=== PATIENT | male | born 1945 | race Caucasian/White ===

== ENCOUNTER → 2021-04-21 | Outpatient (CLI) | payer MEDICARE, OTHER ==
--- NOTE | 2021-04-21 16:42 | RAD ---
XR SHOULDER_LEFT 2+ VIEWS Clinical Indication: Reason: FALL. PAIN AND SWELLING. / Spl. Instructions: / History: Comparison: None. Findings: There is acute traumatic essentially nondisplaced fracture of the greater tuberosity of the humerus. There is no shoulder dislocation. There is mild AC arthropathy. There are median sternotomy wires. Th e left lung is clear. IMPRESSION: There is acute traumatic essentially nondisplaced fracture of the greater tuberosity. Electronically signed by: Adrian Garcia MD (04/21/2021 4:40 PM) [id number]
== END ==
LOC: RAD 14:23 → EDSTATUS 05-06 15:06
PROVIDERS: ATTEND Family Medicine
DX: S42.255A Nondisplaced fracture of greater tuberosity of left humerus, initial encounter for closed fracture (principal); M12.812 Other specific arthropathies, not elsewhere classified, left shoulder; W19.XXXA Unspecified fall, initial encounter; Y93.89 Activity, other specified; Y92.89 Other specified places as the place of occurrence of the external cause; Y99.8 Other external cause status
CPT/HCPCS: 73030

== ENCOUNTER → 2021-05-19 | Outpatient (CLI) | payer BC, OTHER ==
[~2021-05-19] MED LIST: ASPI-630 PO; BUME1TAB3 PO; CARB-183 PO; FERR325T72 PO; IPRA3AMP29 NEB; ONDA4TAB12 PO; PHEN100C PO; PRIM250T28 PO; RIVA20TA2 PO; SERT100T PO; TIOT18CA IH; TRAM50TA PO
[2021-05-19 06:27] LABS: BASO % 0 % (0-3); EOS % 0 % (0-3); HEMATOCRIT 38.1 % (39.0-53.0); HEMOGLOBIN 12.1 g/dL (13.0-17.5); LYMPH # 0.6 x10^3/uL (1.0-4.8); LYMPH % 9 % (24-48); MEAN CORPUSCULAR HEMOGLOBIN 31 pg (25-35); MEAN CORPUSCULAR HGB CONC 32 g/dL (31-37); MEAN CORPUSCULAR VOLUME 98 fL (79-100); MONO # 0.5 x10^3/uL (0.0-1.1); MONO % 8 % (0-9); NEUT # 5.5 x10^3/uL (1.8-7.7); NEUT % 83 % (31-73); PLATELET COUNT 187 x10^3/uL (140-400); RED BLOOD COUNT 3.88 x10^6/uL (4.30-5.70); RED CELL DISTRIBUTION WIDTH 17.9 % (11.5-14.5); WHITE BLOOD COUNT 6.6 x10^3/uL (4.0-11.0)
[2021-05-19 06:38] LABS: ALBUMIN 2.9 g/dL (3.4-5.0); ALBUMIN/GLOBULIN RATIO 0.6 (1.0-1.7); CALCIUM 9.3 mg/dL (8.5-10.1); CREATININE 1.4 mg/dL (0.7-1.3); GFR 49.4; POTASSIUM 3.8 mmol/L (3.5-5.1); TOTAL PROTEIN 8.1 g/dL (6.4-8.2)
[2021-05-19 08:50] LABS: % BANDS 4 % (0-9); % LYMPHS 5 % (24-48); % MONOS 2 % (0-10); % SEGS 89 % (35-66); PLT ESTIMATE ADEQUATE (ADEQUATE)
== END ==
LOC: SPEC 00:05
PROVIDERS: ATTEND Family Medicine
DX: J06.9 Acute upper respiratory infection, unspecified (principal)
CPT/HCPCS: 36415; 80053; 85007; 85025

== ENCOUNTER 2021-05-20 21:12 | Inpatient (IN) | payer MEDICARE, OTHER ==
[~2021-05-20] VITALS: Ht 170.2 cm; Wt 95.5 kg
[2021-05-20 21:43] LABS: BASO % 0 % (0-3); EOS % 1 % (0-3); HEMATOCRIT 37.3 % (39.0-53.0); HEMOGLOBIN 12.2 g/dL (13.0-17.5); LYMPH # 0.6 x10^3/uL (1.0-4.8); LYMPH % 7 % (24-48); MEAN CORPUSCULAR HEMOGLOBIN 32 pg (25-35); MEAN CORPUSCULAR HGB CONC 33 g/dL (31-37); MEAN CORPUSCULAR VOLUME 97 fL (79-100); MONO # 0.9 x10^3/uL (0.0-1.1); MONO % 12 % (0-9); NEUT # 6.1 x10^3/uL (1.8-7.7); NEUT % 80 % (31-73); PLATELET COUNT 216 x10^3/uL (140-400); RED BLOOD COUNT 3.84 x10^6/uL (4.30-5.70); RED CELL DISTRIBUTION WIDTH 17.6 % (11.5-14.5); WHITE BLOOD COUNT 7.6 x10^3/uL (4.0-11.0)
[2021-05-20 21:53] LABS: CALCIUM 8.9 mg/dL (8.5-10.1); CREATININE 1.7 mg/dL (0.7-1.3); GFR 39.5; POTASSIUM 3.6 mmol/L (3.5-5.1)
[2021-05-20 21:56] LABS: PROTHROMBIN TIME PATIENT 15.7 SEC (11.7-14.0)
--- NOTE | 2021-05-20 21:57 | RAD ---
Exam: Chest one view INDICATION: Acute respiratory failure TECHNIQUE: Frontal view of the chest Comparisons: 05/18/2021 FINDINGS: Sternotomy wires are noted. The cardiomediastinal silhouette and pulmonary vessels are within normal limits. The lung and pleural spaces are clear. IMPRESSION: No acute pulmonary process. Electronically signed by: Lucia Smith MD (05/20/2021 9:54 PM) SVETA
[2021-05-20 21:59] LABS: ALBUMIN/GLOBULIN RATIO 0.6 (1.0-1.7); TOTAL BILIRUBIN 0.8 mg/dL (0.2-1.0); TOTAL PROTEIN 7.7 g/dL (6.4-8.2)
[2021-05-20 22:53] LABS: INFLUENZA A PATIENT NEGATIVE (NEGATIVE); INFLUENZA B PATIENT NEGATIVE (NEGATIVE)
--- NOTE | 2021-05-20 23:05 | HP ---
DATE OF SERVICE: 05/20/2021 ADMIT DATE: 05/20/2021 CHIEF COMPLAINT: Weakness and shortness of breath. HISTORY OF PRESENT ILLNESS: The patient is a pleasant 75-year-old male who resides at [facility]. He presented to ER tonight with some weakness and shortness of breath. He seems to be having some mental status change. He has some coarse breath sounds. His BUN and creatinine are high at 32 and 1.7. He also has some mild transaminitis with an AST of 72 and alkaline phosphatase of 137. BNP level is also high at 855. Chest x-ray was surprisingly not show any acute disease. I discussed the case with the ER physician. We are going to admit the patient with a presumed diagnosis of possible developing pneumonia. PAST MEDICAL HISTORY: Parkinson's, previous pneumonia, debility, probable bypass surgery (he has an incision on his chest). ALLERGIES: None. FAMILY HISTORY: Diabetes. SOCIAL HISTORY: Does not drink, smoke or take drugs that we know of. MEDICATIONS: Reviewed, please refer to the MRAD. REVIEW OF SYSTEMS: Unable to obtain. The patient is too weak and not talking. PHYSICAL EXAMINATION: VITALS: Within normal limits and are stable. GENERAL: He is very weak and not talking. HEENT: Normal cephalic atraumatic, external auditory canals are patent EYES: Extraocular muscles are intact, pupils are equally round and reactive to light and accommodation MUSCULOSKELETAL: Well developed, well nourished, good range of motion ENDOCRINE: No thyromegaly was palpated LYMPHATICS: No cervical chain or axillary nodes were noted HEMATOPOIETIC: No bruising NECK: Supple, no JVD, no thyromegaly was noted. LUNGS: Clear to auscultation in all lung campo without rhonchi or wheezing. HEART: RRR, S1, S2 present. Peripheral pulses intact, no obvious murmurs were noted. ABDOMEN: Soft, nontender. Positive bowel sounds no organomegaly, normal bowel sounds. EXTREMITIES: Without any cyanosis, clubbing, or edema. Pedal pulses intact, Homans sign is negative. NEUROLOGIC: He is very weak and not talking. PSYCHIATRIC: Normal affect, normal mood. Stable. SKIN: No ulcerations or rashes, good skin turgor, no jaundice. VASCULAR: Good capillary refill, neurovascular bundle appears to be intact. LABORATORY DATA: He is getting a chest x-ray currently. I reviewed the films with supply technician. Electrolytes: Sodium 144, potassium 3.6, chloride 104, bicarb 27, BUN 32, creatinine 1.7, glucose 128. White count 7.6, hemoglobin 12.2, platelets 216. INR is 1.3. ASSESSMENT AND PLAN: Shortness of breath with possible clinical pneumonia, anemia, azotemia, chronic renal insufficiency, mild transaminitis, possible heart failure with an elevated BNP. The patient has been admitted. We will start empiric IV azithromycin. O2 per nasal cannula. Home meds. Deep venous thrombosis prophylaxis. Rule out influenza, rule out COVID-19. We will make further diagnostic and therapeutic recommendations once we receive the patient in the morning. CHELSIE/SHANNON DR: Kaylynn TID: [id number]
[2021-05-20 23:07] LABS: AMORPHOUS SEDIMENT,UR PRESENT /HPF; BACTERIA,URINE MODERATE /HPF (0-FEW); GRANULAR CASTS,URINE OCCASIONAL /HPF; HYALINE CASTS, URINE FEW /HPF; RBC,URINE OCC /HPF (0-2)
[2021-05-21] VITALS (7 sets, daily range): BP systolic 112–146; BP diastolic 58–74
--- NOTE | 2021-05-21 00:09 | PHYS DOC ---
Past Medical History Past Surgical History: Coronary Bypass Surgery Smoking Status: Former Smoker Alcohol Use: None Adult General Chief Complaint Chief Complaint: SHORTNESS OF BREATH HPI HPI The patient is a 75-year-old male with a history of hypertension, hyperlipidemia, coronary artery disease status post CABG, some degree of heart failure without echocardiogram on file, abdominal aortic aneurysm currently being monitored, history of DVT on Xarelto, COPD not on home oxygen at baseline, Parkinson's disease. Mr. Bennett presents from the nursing facility for evaluation of a fever and hypoxia. Unclear how long he has had a fever or hypoxia for; per records it appears that he was diagnosed with a bilateral pneumonia based on a chest x-ray completed at the nursing facility 2 days ago. He was started on levofloxacin. Staff feel he has gotten worse instead of better so they sent him to the emergency department for evaluation. Upon initial evaluation here in the emergency department patient is alert, appropriately interactive, following commands with all extremities but a little sleepy. He is requiring 2 L of nasal cannula oxygen to maintain saturation which is not normal for him. He had a fever to 101 Fahrenheit prior to arrival at the shelter but they gave him Tylenol and he is afebrile here. Other vital signs are generally appropriate. He is in no acute distress. He denies pain anywhere but otherwise does not meaningfully contribute to history. Review of Systems Review of Systems A 12 point review of systems was completed and was negative except where noted in HPI above. Current Medications Current Medications Current Medications Medications (Trade) Dose Ordered Sig/Fabienne Start Time Stop Time Status Last Admin Dose Admin Azithromycin 500 mg/Sodium Chloride 250 ml @ 250 mls/hr 1X ONCE 05/20/21 21:30 05/20/21 22:29 UNV Ceftriaxone Sodium (Rocephin) 1 gm Q24H 05/20/21 22:45 UNV Physical Exam Physical Exam 75-year-old male appearing nontoxic and in no acute distress. Head is normocephalic and atraumatic. Neck is supple and nontender. No JVD. O ropharynx is moist. Lungs with diminished breath sounds and some coarse crackles noted to all campo. Abdomen is soft, nontender and nondistended without pulsatile mass. Skin is warm and dry without cyanosis, clubbing or edema. Psychiatrically, the patient demonstrates appropriate mood and affect and is alert. Neurologically, patient moves all extremities equally, is alert and appropriately interactive, and no lateralizing deficits are seen. Evaluation of the extremities reveals BUEs and BLEs neurovascularly intact distally with strength out of 5, sensation intact light touch in all nerve distributions, radial, DP and PT pulses 2+ and equal bilaterally, capillary refill less than 2 seconds, hands and feet warm and well-perfused. No dependent peripheral edema distally. No calf tenderness swelling bilaterally. Homans test is negative bilaterally. Current Patient Data Vital Signs Vital Signs Date Time Temp Pulse Resp B/P (MAP) Pulse Ox O2 Delivery O2 Flow Rate FiO2 05/20/21 22:45 106 158/85 (109) 91 Nasal Cannula 2.0 05/20/21 21:37 98.7 18 98.7 Lab Values Laboratory Tests Test 05/20/21 21:24 05/20/21 21:25 05/20/21 21:30 05/20/21 22:30 White Blood Count 7.6 x10^3/uL (4.0-11.0) Red Blood Count 3.84 x10^6/uL (4.30-5.70) L Hemoglobin 12.2 g/dL (13.0-17.5) L Hematocrit 37.3 % (39.0-53.0) L Mean Corpuscular Volume 97 fL (79-100) Mean Corpuscular Hemoglobin 32 pg (25-35) Mean Corpuscular Hemoglobin Concent 33 g/dL (31-37) Red Cell Distribution Width 17.6 % (11.5-14.5) H Platelet Count 216 x10^3/uL (140-400) Neutrophils (%) (Auto) 80 % (31-73) H Lymphocytes (%) (Auto) 7 % (24-48) L Monocytes (%) (Auto) 12 % (0-9) H Eosinophils (%) (Auto) 1 % (0-3) Basophils (%) (Auto) 0 % (0-3) Neutrophils # (Auto) 6.1 x10^3/uL (1.8-7.7) Lymphocytes # (Auto) 0.6 x10^3/uL (1.0-4.8) L Monocytes # (Auto) 0.9 x10^3/uL (0.0-1.1) Eosinophils # (Auto) 0.0 x10^3/uL (0.0-0.7) Basophils # (Auto) 0.0 x10^3/uL (0.0-0.2) Prothrombin Time 15.7 SEC (11.7-14.0) H Prothrombin Time INR 1.3 (0.8-1.1) H Activated Partial Thromboplast Time 31 SEC (24-38) Sodium Level 144 mmol/L (136-145) Potassium Level 3.6 mmol/L (3.5-5.1) Chloride Level 104 mmol/L (98-107) Carbon Dioxide Level 27 mmol/L (21-32) Anion Gap 13 (6-14) Blood Urea Nitrogen 32 mg/dL (8-26) H Creatinine 1.7 mg/dL (0.7-1.3) H Estimated GFR (Cockcroft-Gault) 39.5 BUN/Creatinine Ratio 19 (6-20) Glucose Level 128 mg/dL (70-99) H Lactic Acid Level 1.4 mmol/L (0.4-2.0) Calcium Level 8.9 mg/dL (8.5-10.1) Total Bilirubin 0.8 mg/dL (0.2-1.0) Aspartate Amino Transferase (AST) 72 U/L (15-37) H Alanine Aminotransferase (ALT) 15 U/L (16-63) L Alkaline Phosphatase 137 U/L (46-116) H Troponin I High Sensitivity 12 ng/L (4-75) LR-Vzl-X-Type Natriuretic Peptide 855 pg/mL (0-449) H Total Protein 7.7 g/dL (6.4-8.2) Albumin 3.0 g/dL (3.4-5.0) L Albumin/Globulin Ratio 0.6 (1.0-1.7) L Procalcitonin 0.65 ng/mL (0.00-0.10) H Influenza Type A Antigen Negative (NEGATIVE) Influenza Type B Antigen Negative (NEGATIVE) SARS-CoV-2 Antigen (Rapid) Negative (NEGATIVE) Test 05/20/21 22:40 Urine Collection Type Unknown Urine Color (Auto) Yellow Urine Turbidity Clear Urine pH (Auto) 5.5 (<5.0-8.0) Urine Specific [place] 1.021 (1.000-1.030) Urine Protein (Auto) 50 mg/dL (Negative) Urine Glucose (Auto)(UA) Negative mg/dL (Negative) Urine Ketones (Auto) Negative mg/dL (Negative) Urine Blood (Auto) Trace (Negative) Urine Nitrite Negative (Negative) Urine Bilirubin (Auto) Negative (Negative) Urine Urobilinogen (Auto) 4 mg/dL (Normal) Urine Leukocyte Esterase (Auto) Negative (Negative) Urine RBC Occ /HPF (0-2) Urine WBC 1-4 /HPF (0-4) Urine Squamous Epithelial Cells Mod /LPF Urine Amorphous Sediment Present /HPF Urine Bacteria Moderate /HPF (0-FEW) Urine Hyaline Casts Few /HPF Urine Granular Casts Occasional /HPF Urine Mucus Mod /LPF Laboratory Tests 05/20/21 21:24 Laboratory Tests 05/20/21 21:30 EKG EKG Sinus rhythm, rate 108, no acute ST elevation or depression, OK 132, QRS 110, QT c 424, EP interpretation. Nonischemic tracing, intervals appropriate. Radiology/Procedures Radiology/Procedures Exam: Chest one view INDICATION: Acute respiratory failure TECHNIQUE: Frontal view of the chest Comparisons: 05/18/2021 FINDINGS: Sternotomy wires are noted. The cardiomediastinal silhouette and pulmonary vessels are within normal limits. The lung and pleural spaces are clear. IMPRESSION: No acute pulmonary process. Electronically signed by: Lucia Beckham MD (05/20/2021 9:54 PM) [facility] DICTATED and SIGNED BY: LUCIA BECKHAM MD DATE: 05/20/212152 Course & Med Decision Making Course & Med Decision Making Large work-up as above is without too much evidence of acute process. Chest x- ray is clear but patient has been on Levaquin for 2 days. Chest x-ray from the nursing facility did show some infiltrates. Creatinine a little worse than it was when checked 2 days ago at the shelter. Lungs are clear without evidence of congestive failure. Going to give a liter of IV fluids. Patient has been covered with Rocephin and azithromycin after cultures. Will do a DuoNeb and some Solu-Medrol as well to cover for the possibility of superimposed COPD exacerbation given that he was wheezing a little on arrival. Will proceed with admission. Graciously accepted for admission by Dr. Collins. Critical care time was 42 minutes for acute hypoxemic respiratory failure. Dragon Disclaimer Dragon Disclaimer This electronic medical record was generated, in whole or in part, using a voice recognition dictation system. Departure Departure Impression: Primary Impression: Acute hypoxemic respiratory failure Additional Impressions: Bacterial pneumonia Acute renal insufficiency COPD with acute exacerbation Disposition: ADMITTED INPATIENT Condition: GUARDED Referrals: RUSSELL SAMUEL DO (PCP) Problem Qualifiers SOLE ACUÑA MD May 21, 2021 00:09
[2021-05-21] MEDS ORDERED: ACETAMINOPHEN 325 MG TABLET. PO PRN (00:15)
[2021-05-21] MEDS ORDERED: ONDANSETRON PF 4 MG/2 ML VIAL. IVP PRN (00:15)
[2021-05-21] MEDS ORDERED: methylPREDNISolone SOD SUCC PF 125 MG/2 ML VIAL. IV ONE (00:30)
[2021-05-21] MEDS ORDERED: IPRATRPIUM/ALBUTEROL 0.5/2.5MG 3 ML NEBU. NEB ONE (00:30)
[2021-05-21] MEDS ORDERED: IV NORMAL SALINE 1000ML BAG 1,000 ML IV ONE (00:30)
[2021-05-21] MEDS ORDERED: cefTRIAXone IV Push 1 GM VIAL. IVP SCH (01:00)
[2021-05-21] MEDS ORDERED: AZITHROMYCIN 500 MG in IV NORMAL SALINE 250ML 250 ML IV ONE (01:00)
[2021-05-21] MEDS ORDERED: IPRA3AMP29 NEB (05:57)
[2021-05-21] MEDS ORDERED: SERT100T PO (05:57)
[2021-05-21] MEDS ORDERED: TRAM50TA PO (05:57)
[2021-05-21] MEDS ORDERED: BUME1TAB3 PO (05:57)
[2021-05-21] MEDS ORDERED: CARB-183 PO (05:57)
[2021-05-21] MEDS ORDERED: ONDA4TAB12 PO (05:57)
[2021-05-21] MEDS ORDERED: PRIM250T28 PO (05:57)
[2021-05-21] MEDS ORDERED: TIOT18CA IH (05:57)
[2021-05-21] MEDS ORDERED: FERR325T72 PO (05:57)
[2021-05-21] MEDS ORDERED: RIVA20TA2 PO (05:57)
[2021-05-21] MEDS ORDERED: PHEN100C PO (05:57)
[2021-05-21] MEDS ORDERED: ASPI-630 PO (05:57)
--- NOTE | 2021-05-21 06:35 | NUR ---
Nursing note: Pt admitted during down time. See chart for downtime charting.
[2021-05-21] MEDS: IPRATRPIUM/ALBUTEROL 0.5/2.5MG 3 ML NEBU. NEB SCH ×6 (07:51→20:15)
--- NOTE | 2021-05-21 10:00 | PDOC ---
PULMONARY PROGRESS NOTES DATE: 05/21/21 TIME: 10:00 Vitals Vital Signs Date Time Temp Pulse Resp B/P (MAP) Pulse Ox O2 Delivery O2 Flow Rate FiO2 05/21/21 07:51 96 Nasal Cannula 3.0 05/21/21 07:00 98.7 97 18 142/74 (96) 98.7 Labs Laboratory Tests Test 05/20/21 21:24 05/20/21 21:25 05/20/21 21:30 05/20/21 22:30 White Blood Count 7.6 x10^3/uL (4.0-11.0) Red Blood Count 3.84 x10^6/uL (4.30-5.70) Hemoglobin 12.2 g/dL (13.0-17.5) Hematocrit 37.3 % (39.0-53.0) Mean Corpuscular Volume 97 fL (79-100) Mean Corpuscular Hemoglobin 32 pg (25-35) Mean Corpuscular Hemoglobin Concent 33 g/dL (31-37) Red Cell Distribution Width 17.6 % (11.5-14.5) Platelet Count 216 x10^3/uL (140-400) Neutrophils (%) (Auto) 80 % (31-73) Lymphocytes (%) (Auto) 7 % (24-48) Monocytes (%) (Auto) 12 % (0-9) Eosinophils (%) (Auto) 1 % (0-3) Basophils (%) (Auto) 0 % (0-3) Neutrophils # (Auto) 6.1 x10^3/uL (1.8-7.7) Lymphocytes # (Auto) 0.6 x10^3/uL (1.0-4.8) Monocytes # (Auto) 0.9 x10^3/uL (0.0-1.1) Eosinophils # (Auto) 0.0 x10^3/uL (0.0-0.7) Basophils # (Auto) 0.0 x10^3/uL (0.0-0.2) Prothrombin Time 15.7 SEC (11.7-14.0) Prothromb Time International Ratio 1.3 (0.8-1.1) Activated Partial Thromboplast Time 31 SEC (24-38) Sodium Level 144 mmol/L (136-145) Potassium Level 3.6 mmol/L (3.5-5.1) Chloride Level 104 mmol/L (98-107) Carbon Dioxide Level 27 mmol/L (21-32) Anion Gap 13 (6-14) Blood Urea Nitrogen 32 mg/dL (8-26) Creatinine 1.7 mg/dL (0.7-1.3) Estimated GFR (Cockcroft-Gault) 39.5 BUN/Creatinine Ratio 19 (6-20) Glucose Level 128 mg/dL (70-99) Lactic Acid Level 1.4 mmol/L (0.4-2.0) Calcium Level 8.9 mg/dL (8.5-10.1) Total Bilirubin 0.8 mg/dL (0.2-1.0) Aspartate Amino Transf (AST/SGOT) 72 U/L (15-37) Alanine Aminotransferase (ALT/SGPT) 15 U/L (16-63) Alkaline Phosphatase 137 U/L (46-116) Troponin I High Sensitivity 12 ng/L (4-75) QI-Usj-N-Type Natriuretic Peptide 855 pg/mL (0-449) Total Protein 7.7 g/dL (6.4-8.2) Albumin 3.0 g/dL (3.4-5.0) Albumin/Globulin Ratio 0.6 (1.0-1.7) Procalcitonin 0.65 ng/mL (0.00-0.10) Influenza Type A Antigen Negative (NEGATIVE) Influenza Type B Antigen Negative (NEGATIVE) SARS-CoV-2 Antigen (Rapid) Negative (NEGATIVE) Test 05/20/21 22:40 05/21/21 00:50 05/21/21 03:05 Urine Collection Type Unknown Urine Color (Auto) Yellow Urine Turbidity Clear Urine pH (Auto) 5.5 (<5.0-8.0) Urine Specific [place] 1.021 (1.000-1.030) Urine Protein (Auto) 50 mg/dL (Negative) Urine Glucose (Auto)(UA) Negative mg/dL (Negative) Urine Ketones (Auto) Negative mg/dL (Negative) Urine Blood (Auto) Trace (Negative) Urine Nitrite Negative (Negative) Urine Bilirubin (Auto) Negative (Negative) Urine Urobilinogen (Auto) 4 mg/dL (Normal) Urine Leukocyte Esterase (Auto) Negative (Negative) Urine RBC Occ /HPF (0-2) Urine WBC 1-4 /HPF (0-4) Urine Squamous Epithelial Cells Mod /LPF Urine Amorphous Sediment Present /HPF Urine Bacteria Moderate /HPF (0-FEW) Urine Hyaline Casts Few /HPF Urine Granular Casts Occasional /HPF Urine Mucus Mod /LPF Troponin I High Sensitivity 11 ng/L (4-75) 11 ng/L (4-75) Laboratory Tests Test 05/20/21 21:24 05/20/21 21:25 05/20/21 21:30 05/20/21 22:30 White Blood Count 7.6 x10^3/uL (4.0-11.0) Red Blood Count 3.84 x10^6/uL (4.30-5.70) Hemoglobin 12.2 g/dL (13.0-17.5) Hematocrit 37.3 % (39.0-53.0) Mean Corpuscular Volume 97 fL (79-100) Mean Corpuscular Hemoglobin 32 pg (25-35) Mean Corpuscular Hemoglobin Concent 33 g/dL (31-37) Red Cell Distribution Width 17.6 % (11.5-14.5) Platelet Count 216 x10^3/uL (140-400) Neutrophils (%) (Auto) 80 % (31-73) Lymphocytes (%) (Auto) 7 % (24-48) Monocytes (%) (Auto) 12 % (0-9) Eosinophils (%) (Auto) 1 % (0-3) Basophils (%) (Auto) 0 % (0-3) Neutrophils # (Auto) 6.1 x10^3/uL (1.8-7.7) Lymphocytes # (Auto) 0.6 x10^3/uL (1.0-4.8) Monocytes # (Auto) 0.9 x10^3/uL (0.0-1.1) Eosinophils # (Auto) 0.0 x10^3/uL (0.0-0.7) Basophils # (Auto) 0.0 x10^3/uL (0.0-0.2) Prothrombin Time 15.7 SEC (11.7-14.0) Prothromb Time International Ratio 1.3 (0.8-1.1) Activated Partial Thromboplast Time 31 SEC (24-38) Sodium Level 144 mmol/L (136-145) Potassium Level 3.6 mmol/L (3.5-5.1) Chloride Level 104 mmol/L (98-107) Carbon Dioxide Level 27 mmol/L (21-32) Anion Gap 13 (6-14) Blood Urea Nitrogen 32 mg/dL (8-26) Creatinine 1.7 mg/dL (0.7-1.3) Estimated GFR (Cockcroft-Gault) 39.5 BUN/Creatinine Ratio 19 (6-20) Glucose Level 128 mg/dL (70-99) Lactic Acid Level 1.4 mmol/L (0.4-2.0) Calcium Level 8.9 mg/dL (8.5-10.1) Total Bilirubin 0.8 mg/dL (0.2-1.0) Aspartate Amino Transf (AST/SGOT) 72 U/L (15-37) Alanine Aminotransferase (ALT/SGPT) 15 U/L (16-63) Alkaline Phosphatase 137 U/L (46-116) Troponin I High Sensitivity 12 ng/L (4-75) RC-Ndk-H-Type Natriuretic Peptide 855 pg/mL (0-449) Total Protein 7.7 g/dL (6.4-8.2) Albumin 3.0 g/dL (3.4-5.0) Albumin/Globulin Ratio 0.6 (1.0-1.7) Procalcitonin 0.65 ng/mL (0.00-0.10) Influenza Type A Antigen Negative (NEGATIVE) Influenza Type B Antigen Negative (NEGATIVE) SARS-CoV-2 Antigen (Rapid) Negative (NEGATIVE) Test 05/20/21 22:40 05/21/21 00:50 05/21/21 03:05 Urine Collection Type Unknown Urine Color (Auto) Yellow Urine Turbidity Clear Urine pH (Auto) 5.5 (<5.0-8.0) Urine Specific [place] 1.021 (1.000-1.030) Urine Protein (Auto) 50 mg/dL (Negative) Urine Glucose (Auto)(UA) Negative mg/dL (Negative) Urine Ketones (Auto) Negative mg/dL (Negative) Urine Blood (Auto) Trace (Negative) Urine Nitrite Negative (Negative) Urine Bilirubin (Auto) Negative (Negative) Urine Urobilinogen (Auto) 4 mg/dL (Normal) Urine Leukocyte Esterase (Auto) Negative (Negative) Urine RBC Occ /HPF (0-2) Urine WBC 1-4 /HPF (0-4) Urine Squamous Epithelial Cells Mod /LPF Urine Amorphous Sediment Present /HPF Urine Bacteria Moderate /HPF (0-FEW) Urine Hyaline Casts Few /HPF Urine Granular Casts Occasional /HPF Urine Mucus Mod /LPF Troponin I High Sensitivity 11 ng/L (4-75) 11 ng/L (4-75) Medications Active Scripts Medications Dose Route/Sig Max Daily Dose Days Date Category Dose Instructions Mysoline (Primidone) 250 Mg Tablet 250 Mg PO BID 05/21/21 Reported Dilantin (Phenytoin Sodium Extended) 100 Mg Capsule 1 Cap PO BID 05/21/21 Reported Spiriva (Tiotropium [place]) 18 Mcg Cap.w.dev 2 Inh IH DAILY 05/21/21 Reported Aspirin 81 Mg Tab.chew 1 Tab PO DAILY 05/21/21 Reported Bumetanide 1 Mg Tablet 1 Tab PO DAILY 05/21/21 Reported Zoloft (Sertraline Hcl) 100 Mg Tablet 100 Mg PO DAILY 05/21/21 Reported Sinemet 25-100 Mg Tablet (Carbidopa/Levodopa) 1 Each Tablet 1 Tab PO TID 05/21/21 Reported Ondansetron Odt (Ondansetron) 4 Mg Tab.rapdis 4 Mg PO PRN Q8HRS PRN 05/21/21 Reported Xarelto (Rivaroxaban) 20 Mg Tablet 1 Tab PO DAILY 30 05/21/21 Reported with food Feosol (Ferrous Sulfate) 325 Mg Tablet 325 Mg PO QODAY 05/21/21 Reported Tramadol Hcl 50 Mg Tablet 50 Mg PO PRN Q6HRS PRN 05/21/21 Reported Duoneb 0.5-3(2.5) Mg/3 Ml (Albuterol/Ipratropium) 3 Ml Ampul.neb 3 Ml NEB PRN Q4HRS PRN 05/21/21 Reported Impression . Full consult dictated Possible aspiration pneumonia Continue treatment for healthcare acquired pneumonia Check arterial blood gas Discussed with and daughter at the bedside VIDAL BERGMAN MD May 21, 2021 10:00
--- NOTE | 2021-05-21 10:28 | EKG ---
[facility] [address] [place] [address] Test Date: 2021-05-20 Test Time: 21:20:55 Pat Name: BOUCHRA PUENTE Department: Room: [facility] Gender: M Manager Of Planning: : 1945 Requested By: SOLE ACUÑA Order Number: [id number] Reading MD: Gianni Holder Measurements Intervals [place] Rate: 108 P: 42 MD: 132 QRS: -12 QRSD: 110 T: -82 QT: 314 QTc: 424 Interpretive Statements SINUS TACHYCARDIA LEFTWARD AXIS QRS(T) CONTOUR ABNORMALITY CONSISTENT WITH INFERIOR INFARCT AGE UNDETERMINED ABNORMAL ECG RI6.02 No previous ECG available for comparison Electronically Signed On 05-30-2021 8:59:52 CDT by Gianni Holder
[2021-05-21] MEDS ORDERED: traMADol 50 MG TABLET PO PRN (11:45)
[2021-05-21] MEDS ORDERED: IPRATRPIUM/ALBUTEROL 0.5/2.5MG 3 ML NEBU. NEB PRN (11:45)
[2021-05-21] MEDS ORDERED: ONDANSETRON ODT 4 MG TAB.RAPDIS. PO PRN (11:45)
[2021-05-21] MEDS ORDERED: ALBUTEROL SULFATE 2.5 MG/3 ML NEBU. NEB PRN (12:00)
[2021-05-21] MEDS: ASPIRIN CHEWABLE 81 MG TABLET. PO SCH (12:29)
[2021-05-21] MEDS: FERROUS SULFATE 325 MG TABLET. PO SCH (12:29)
[2021-05-21] MEDS: PHENYTOIN SODIUM EXTENDED 100 MG CAPSULE PO SCH ×2 (12:29→21:33)
[2021-05-21] MEDS: SERTRALINE 50 MG TABLET. PO SCH (12:29)
[2021-05-21] MEDS: CARBIDOPA/LEVODOPA 25/100MG TABLET PO SCH ×2 (12:30→21:34)
[2021-05-21] MEDS ORDERED: CARBIDOPA/LEVODOPA 25/100MG TABLET PO SCH (12:30)
[2021-05-21] MEDS: BUMETANIDE 1 MG TABLET. PO SCH (12:30)
[2021-05-21] MEDS: RIVAROXABAN 10 MG TABLET. PO SCH (12:30)
[2021-05-21] MEDS: PRIMIDONE 250 MG TABLET PO SCH ×2 (13:08→21:33)
--- NOTE | 2021-05-21 15:19 | NUR ---
SS following for discharge planning. SS reviewed pt chart and discussed with pt RN. Pt is from home and is currently requiring oxygen at three liters nasal canula. COVID19 negative. Pulmonology consulted. SS will continue to follow for discharge planning.
--- NOTE | 2021-05-21 15:42 | PDOC ---
[employer] PROGRESS NOTE Date of Service DOS: DATE: 05/21/21 TIME: 15:37 Chief Complaint Chief Complaint sepsis acute pneumonia, anemia, acuite renal fialure, ATN, baseline Cr 1.2,, acute change, chcekc UA, renal US mild transaminitis, atrial fibrillatin, CAD, HR about 100 at times, poss afib RVR, labs look like alcohol use, acute encephalopathy, try thiamine, start CIWA History of Present Illness History of Present Illness IV azithromycin and rocephin. O2 per nasal cannula. Home meds. D Rule out influenza, rule out COVID-19 start CIWA Vitals/I&O Vitals/I&O: Vital Signs Date Time Temp Pulse Resp B/P (MAP) Pulse Ox O2 Delivery O2 Flow Rate FiO2 05/21/21 15:30 93 Nasal Cannula 3.0 05/21/21 14:59 98.9 97 20 142/67 (92) 98.9 Physical Exam General: Cooperative, mild distress Heart: No murmurs Lungs: Wheezing, Other (rales, low vol, chest scar from CABG at 3 years ago) Abdomen: Normal bowel sounds, Soft Extremities: No clubbing Skin: No rashes Labs Labs: Laboratory Tests Test 05/20/21 21:24 05/20/21 21:25 05/20/21 21:30 05/20/21 22:30 White Blood Count 7.6 x10^3/uL (4.0-11.0) Red Blood Count 3.84 x10^6/uL (4.30-5.70) Hemoglobin 12.2 g/dL (13.0-17.5) Hematocrit 37.3 % (39.0-53.0) Mean Corpuscular Volume 97 fL (79-100) Mean Corpuscular Hemoglobin 32 pg (25-35) Mean Corpuscular Hemoglobin Concent 33 g/dL (31-37) Red Cell Distribution Width 17.6 % (11.5-14.5) Platelet Count 216 x10^3/uL (140-400) Neutrophils (%) (Auto) 80 % (31-73) Lymphocytes (%) (Auto) 7 % (24-48) Monocytes (%) (Auto) 12 % (0-9) Eosinophils (%) (Auto) 1 % (0-3) Basophils (%) (Auto) 0 % (0-3) Neutrophils # (Auto) 6.1 x10^3/uL (1.8-7.7) Lymphocytes # (Auto) 0.6 x10^3/uL (1.0-4.8) Monocytes # (Auto) 0.9 x10^3/uL (0.0-1.1) Eosinophils # (Auto) 0.0 x10^3/uL (0.0-0.7) Basophils # (Auto) 0.0 x10^3/uL (0.0-0.2) Prothrombin Time 15.7 SEC (11.7-14.0) Prothromb Time International Ratio 1.3 (0.8-1.1) Activated Partial Thromboplast Time 31 SEC (24-38) Sodium Level 144 mmol/L (136-145) Potassium Level 3.6 mmol/L (3.5-5.1) Chloride Level 104 mmol/L (98-107) Carbon Dioxide Level 27 mmol/L (21-32) Anion Gap 13 (6-14) Blood Urea Nitrogen 32 mg/dL (8-26) Creatinine 1.7 mg/dL (0.7-1.3) Estimated GFR (Cockcroft-Gault) 39.5 BUN/Creatinine Ratio 19 (6-20) Glucose Level 128 mg/dL (70-99) Lactic Acid Level 1.4 mmol/L (0.4-2.0) Calcium Level 8.9 mg/dL (8.5-10.1) Total Bilirubin 0.8 mg/dL (0.2-1.0) Aspartate Amino Transf (AST/SGOT) 72 U/L (15-37) Alanine Aminotransferase (ALT/SGPT) 15 U/L (16-63) Alkaline Phosphatase 137 U/L (46-116) Troponin I High Sensitivity 12 ng/L (4-75) VA-Geu-G-Type Natriuretic Peptide 855 pg/mL (0-449) Total Protein 7.7 g/dL (6.4-8.2) Albumin 3.0 g/dL (3.4-5.0) Albumin/Globulin Ratio 0.6 (1.0-1.7) Procalcitonin 0.65 ng/mL (0.00-0.10) Influenza Type A Antigen Negative (NEGATIVE) Influenza Type B Antigen Negative (NEGATIVE) SARS-CoV-2 Antigen (Rapid) Negative (NEGATIVE) Test 05/20/21 22:40 05/21/21 00:50 05/21/21 03:05 Urine Collection Type Unknown Urine Color (Auto) Yellow Urine Turbidity Clear Urine pH (Auto) 5.5 (<5.0-8.0) Urine Specific [place] 1.021 (1.000-1.030) Urine Protein (Auto) 50 mg/dL (Negative) Urine Glucose (Auto)(UA) Negative mg/dL (Negative) Urine Ketones (Auto) Negative mg/dL (Negative) Urine Blood (Auto) Trace (Negative) Urine Nitrite Negative (Negative) Urine Bilirubin (Auto) Negative (Negative) Urine Urobilinogen (Auto) 4 mg/dL (Normal) Urine Leukocyte Esterase (Auto) Negative (Negative) Urine RBC Occ /HPF (0-2) Urine WBC 1-4 /HPF (0-4) Urine Squamous Epithelial Cells Mod /LPF Urine Amorphous Sediment Present /HPF Urine Bacteria Moderate /HPF (0-FEW) Urine Hyaline Casts Few /HPF Urine Granular Casts Occasional /HPF Urine Mucus Mod /LPF Troponin I High Sensitivity 11 ng/L (4-75) 11 ng/L (4-75) Review of Systems Review of Systems: cough, wekanes, lethargy, falls alseep on exam Assessment and Plan Assessmemt and Plan Problems Medical Problems: (1) Acute hypoxemic respiratory failure Status: Acute (2) Acute renal insufficiency Status: Acute (3) Bacterial pneumonia Status: Acute (4) COPD with acute exacerbation Status: Acute Comment Review of Relevant I have reviewed the following items dequan (where applicable) has been applied. Medications: Current Medications Medications (Trade) Dose Ordered Sig/Fabienne Route PRN Reason Start Time Stop Time Status Last Admin Dose Admin Azithromycin 500 mg/Sodium Chloride 250 ml @ 250 mls/hr 1X ONCE IV 05/21/21 01:00 05/21/21 04:57 DC 05/21/21 00:48 Ceftriaxone Sodium (Rocephin) 1 gm Q24H IVP 05/21/21 01:00 05/21/21 00:48 Methylprednisolone Sodium Succinate (SOLU-Medrol 125MG VIAL) 125 mg 1X ONCE IV 05/21/21 00:30 05/21/21 00:31 DC 05/21/21 00:47 Albuterol/ Ipratropium (Duoneb) 3 ml 1X ONCE NEB 05/21/21 00:30 05/21/21 00:31 DC 05/21/21 00:49 Sodium Chloride 1,000 ml @ 1,000 mls/hr 1X ONCE IV 05/21/21 00:30 05/21/21 04:57 DC 05/21/21 00:47 Albuterol/ Ipratropium (Duoneb) 3 ml RTQID NEB 05/21/21 08:00 05/21/21 11:46 DC 05/21/21 11:45 Aspirin (Aspirin Chewable) 81 mg DAILY PO 05/21/21 12:00 05/21/21 12:29 Bumetanide (Bumex) 1 mg DAILY PO 05/21/21 12:00 05/21/21 12:30 Ferrous Sulfate (Feosol) 325 mg QODAY PO 05/21/21 12:30 05/21/21 12:29 Phenytoin Sodium (Dilantin) 100 mg BID PO 05/21/21 12:30 05/21/21 12:29 Primidone (Mysoline) 250 mg BID PO 05/21/21 12:30 05/21/21 13:08 Rivaroxaban (Xarelto) 20 mg DAILY PO 05/21/21 12:30 05/21/21 12:30 Sertraline HCl (Zoloft) 100 mg DAILY PO 05/21/21 12:30 05/21/21 12:29 Albuterol/ Ipratropium (Duoneb) 3 ml RTQID NEB 05/21/21 12:00 05/21/21 15:29 Carbidopa/Levodopa (Sinemet 25/100) 1 tab TID PO 05/21/21 12:30 05/21/21 12:30 Justifications for Admission Other Justification PHILOMENA DOUGLAS MD May 21, 2021 15:42
[2021-05-21] MEDS ORDERED: HALOPERIDOL LACTATE 5 MG/ML VIAL. IVP PRN (15:45)
[2021-05-21] MEDS ORDERED: THIAMINE INJ 100 MG in IV DEXTROSE 5% 50 ML IV ONE (15:45)
[2021-05-21] MEDS ORDERED: MULTIVIT INFUSN,ADULT 4,VIT K 10 ML, THIAMINE INJ 100 MG, FOLIC ACID INJ 1 MG in IV NOR... IV ONE (16:00)
[2021-05-21] MEDS ORDERED: DIGOXIN IV 500 MCG/2 ML AMPUL. IV ONE (16:15)
[2021-05-21] MEDS ORDERED: PIP/TAZO PER PHARMACY MC PRN (16:15)
[2021-05-21] MEDS: methylPREDNISolone SOD SUCC PF 40 MG/ML VIAL. IV SCH ×2 (16:31→21:33)
[2021-05-21 16:39] LABS: CALCIUM 9.1 mg/dL (8.5-10.1); CREATININE 1.5 mg/dL (0.7-1.3); GFR 45.6; POTASSIUM 3.6 mmol/L (3.5-5.1)
[2021-05-21 16:57] LABS: BASE EXCESS ABG 4 mmol/L (-3-3); HCO3 ABG 28 mmol/L (21-28); PCO2 ABG 39 mmHg (35-46); PO2 ABG 59 mmHg (65-108); SAT O2 ABG 91 % (92-99)
[2021-05-21] MEDS ORDERED: VANCOMYCIN 2 GM in IV NORMAL SALINE 500ML BAG 500 ML IV ONE (17:00)
[2021-05-21] MEDS: PIPERACILLIN/TAZOBACTAM 3.375 GM in IV NORMAL SALINE 50ML 50 ML IV SCH ×2 (17:48→23:53)
[2021-05-21] MEDS: VANCOMYCIN PER PHARMACY MC PRN ×2 (18:56→18:58)
--- NOTE | 2021-05-21 19:05 | NUR ---
Pharmacy Vancomycin Dosing Note S:Consulted to monitor and dose vancomycin started 05/21/21. O:BOUCHRA PUENTE is a 75 year old M with Pneumonia . Height: 5 feet, 7 inches Weight: 94.1 kg [place] Body Weight: 66.10 Adjusted Body Weight: 77.30 Dosing Weight: Actual Other Antibiotics: zosyn LABS: Last BUN: 35 Last Creatinine: 1.5 Creatinine Clearance: 47 mL/min Last WBC: 7.6 Last Procalcitonin: 0.65 Tmax (past 24 hours): 98.9 Microbiology: I/O: 840/- Drug Levels: Last level: on at Last dose given 05/21/21 at 1854 Vancomycin Dosing: Loading Dose: 2000 mg x1 Dosing Weight: Actual Target Trough: 15-20 A: Based on: weight and renal function P: 1. Begin Vancomycin 1250 mg IV q24h 2. Follow up Trough level on 05/23/21 at 1930 3. Pharmacy will continue to monitor, follow and adjust therapy as needed. Shayy Bang Speedy, 05/21/21 [id number]
[2021-05-21] MEDS: POTASSIUM CL 20MEQ D5-0.45NACL 1,000 ML IV SCH (19:52)
[2021-05-21] MEDS: LACTOBACILLUS RHAMNOSUS GG 1 CAPSULE. PO SCH (21:34)
--- NOTE | 2021-05-21 21:54 | CONS ---
DATE OF CONSULTATION: 05/21/2021 ATTENDING PHYSICIAN: Maritza Collins DO REASON FOR CONSULTATION: The patient is seen in pulmonary consultation at the request of Dr. Paul for respiratory distress, hypoxemia, abnormal x-ray. HISTORY OF PRESENT ILLNESS: The patient is a 75-year-old that resides at [facility]. He has been there for approximately 6 months. He has had advanced parkinsonism. He presented to the Emergency Room with increasing shortness of breath and mental status change. I am not really able to obtain much history from the patient himself. He falls asleep throughout my evaluation. The and daughter were at the bedside. The patient does admit having a cough. He does admit to being short of breath. Denies hemoptysis. He quit tobacco in 2013. There is a prior history of CHF. The patient has a history of coronary artery disease and status post coronary artery bypass grafting at [facility] some time ago. I reviewed his chest x-ray. He had an x-ray upon admission, which revealed right lower lobe infiltrate. I think it is since admission. It is improved. The radiologist read the film out as being normal. I have noticed that the patient had a normal white count, hemoglobin and hematocrit of 12 and 37. His electrolytes were normal. Serology for SARS-CoV-2 was negative. Case was discussed with Dr. Paul considering the patient's advanced parkinsonism and being from a healthcare facility, adjustments were made on his antibiotics. He is currently on vancomycin and Zosyn. PAST MEDICAL HISTORY: Remarkable for coronary artery disease, status post coronary artery bypass grafting, previous pneumonia, parkinsonism, debility, weakness. PAST SURGICAL HISTORY: Coronary artery bypass grafting. FAMILY HISTORY: Diabetes. SOCIAL HISTORY: He resides at [facility]. REVIEW OF SYSTEMS: As indicated above, otherwise other systems could not be adequately reviewed. CURRENT MEDICATIONS: List was reviewed. ALLERGIES: ATORVASTATIN. PHYSICAL EXAMINATION: VITAL SIGNS: Stable. O2 saturation was greater than 92%, currently on 3 liters. HEENT: Eyes: The sclerae were nonicteric. NECK: Jugular venous distention was not elevated. No lymphadenopathy. CHEST: Full expansion. LUNGS: Scattered rhonchi. CARDIOVASCULAR: Regular rate and rhythm with S1, S2, no S3. ABDOMEN: Soft, nontender, nondistended. EXTREMITIES: No clubbing or cyanosis. Some edema. NEUROLOGIC: The patient was arousable, but sleepy. A detailed neuro exam was not performed. He did follow some commands. He moved all of his extremities. LABORATORY DATA: As indicated above. Chest x-ray as indicated above. IMPRESSION: 1. Acute hypoxemic respiratory failure, multifactorial. 2. Possible aspiration pneumonia. 3. Pneumonia, healthcare-acquired, gram-negative, gram-positive organisms. 4. Acute renal failure. 5. Coronary artery disease with previous coronary artery bypass grafting. 6. Acute encephalopathy, suspect toxic, possibly metabolic. 7. Atrial fibrillation. PLAN: 1. Continue current empiric antibiotics. 2. Arterial blood gas. 3. Alcohol withdrawal protocol per Dr. Paul. 4. Anticoagulation. I do appreciate the privilege in sharing in the patient's care. CASH DR: Arsalan TID: [id number]
[2021-05-22 02:36] VITALS: BP 120/56
[2021-05-22 05:07] LABS: BASO % 0 % (0-3); EOS # 0.2 x10^3/uL (0.0-0.7); EOS % 4 % (0-3); HEMATOCRIT 34.5 % (39.0-53.0); LYMPH # 0.6 x10^3/uL (1.0-4.8); LYMPH % 12 % (24-48); MEAN CORPUSCULAR HEMOGLOBIN 32 pg (25-35); MEAN CORPUSCULAR HGB CONC 32 g/dL (31-37); MEAN CORPUSCULAR VOLUME 99 fL (79-100); MONO # 0.3 x10^3/uL (0.0-1.1); MONO % 6 % (0-9); NEUT # 3.7 x10^3/uL (1.8-7.7); NEUT % 78 % (31-73); PLATELET COUNT 182 x10^3/uL (140-400); RED BLOOD COUNT 3.48 x10^6/uL (4.30-5.70); RED CELL DISTRIBUTION WIDTH 17.6 % (11.5-14.5); WHITE BLOOD COUNT 4.8 x10^3/uL (4.0-11.0)
[2021-05-22] MEDS: PIPERACILLIN/TAZOBACTAM 3.375 GM in IV NORMAL SALINE 50ML 50 ML IV SCH ×2 (05:29→12:06)
[2021-05-22 05:32] LABS: CALCIUM 8.5 mg/dL (8.5-10.1); CREATININE 1.3 mg/dL (0.7-1.3); GFR 53.8; POTASSIUM 3.8 mmol/L (3.5-5.1)
[2021-05-22 07:00] VITALS: BP 133/60
[2021-05-22] MEDS: IPRATRPIUM/ALBUTEROL 0.5/2.5MG 3 ML NEBU. NEB SCH ×4 (07:36→20:26)
--- NOTE | 2021-05-22 08:21 | PDOC ---
PULMONARY PROGRESS NOTES DATE: 05/22/21 TIME: 08:21 Subjective Patient more awake today, less short of breath, cough slightly improved he is on a soft mechanical diet Vitals Vital Signs Date Time Temp Pulse Resp B/P (MAP) Pulse Ox O2 Delivery O2 Flow Rate FiO2 05/22/21 07:36 96 Nasal Cannula 4.0 05/22/21 07:00 98.6 74 18 133/60 (84) 98.6 ROS: No Nausea, No Chest Pain, No Abdominal Pain, No Increase Cough General: Alert Lungs: Crackles Cardiovascular: S1, S2 Abdomen: Soft Neuro Exam: Alert Extremities: No Edema Skin: Warm Labs Laboratory Tests Test 05/20/21 21:24 05/20/21 21:25 05/20/21 21:30 05/20/21 22:30 White Blood Count 7.6 x10^3/uL (4.0-11.0) Red Blood Count 3.84 x10^6/uL (4.30-5.70) Hemoglobin 12.2 g/dL (13.0-17.5) Hematocrit 37.3 % (39.0-53.0) Mean Corpuscular Volume 97 fL (79-100) Mean Corpuscular Hemoglobin 32 pg (25-35) Mean Corpuscular Hemoglobin Concent 33 g/dL (31-37) Red Cell Distribution Width 17.6 % (11.5-14.5) Platelet Count 216 x10^3/uL (140-400) Neutrophils (%) (Auto) 80 % (31-73) Lymphocytes (%) (Auto) 7 % (24-48) Monocytes (%) (Auto) 12 % (0-9) Eosinophils (%) (Auto) 1 % (0-3) Basophils (%) (Auto) 0 % (0-3) Neutrophils # (Auto) 6.1 x10^3/uL (1.8-7.7) Lymphocytes # (Auto) 0.6 x10^3/uL (1.0-4.8) Monocytes # (Auto) 0.9 x10^3/uL (0.0-1.1) Eosinophils # (Auto) 0.0 x10^3/uL (0.0-0.7) Basophils # (Auto) 0.0 x10^3/uL (0.0-0.2) Prothrombin Time 15.7 SEC (11.7-14.0) Prothromb Time International Ratio 1.3 (0.8-1.1) Activated Partial Thromboplast Time 31 SEC (24-38) Sodium Level 144 mmol/L (136-145) Potassium Level 3.6 mmol/L (3.5-5.1) Chloride Level 104 mmol/L (98-107) Carbon Dioxide Level 27 mmol/L (21-32) Anion Gap 13 (6-14) Blood Urea Nitrogen 32 mg/dL (8-26) Creatinine 1.7 mg/dL (0.7-1.3) Estimated GFR (Cockcroft-Gault) 39.5 BUN/Creatinine Ratio 19 (6-20) Glucose Level 128 mg/dL (70-99) Lactic Acid Level 1.4 mmol/L (0.4-2.0) Calcium Level 8.9 mg/dL (8.5-10.1) Total Bilirubin 0.8 mg/dL (0.2-1.0) Aspartate Amino Transf (AST/SGOT) 72 U/L (15-37) Alanine Aminotransferase (ALT/SGPT) 15 U/L (16-63) Alkaline Phosphatase 137 U/L (46-116) Troponin I High Sensitivity 12 ng/L (4-75) VL-Gkb-P-Type Natriuretic Peptide 855 pg/mL (0-449) Total Protein 7.7 g/dL (6.4-8.2) Albumin 3.0 g/dL (3.4-5.0) Albumin/Globulin Ratio 0.6 (1.0-1.7) Procalcitonin 0.65 ng/mL (0.00-0.10) Influenza Type A Antigen Negative (NEGATIVE) Influenza Type B Antigen Negative (NEGATIVE) SARS-CoV-2 Antigen (Rapid) Negative (NEGATIVE) Test 05/20/21 22:40 05/21/21 00:50 05/21/21 03:00 05/21/21 03:05 Urine Collection Type Unknown Urine Color (Auto) Yellow Urine Turbidity Clear Urine pH (Auto) 5.5 (<5.0-8.0) Urine Specific [place] 1.021 (1.000-1.030) Urine Protein (Auto) 50 mg/dL (Negative) Urine Glucose (Auto)(UA) Negative mg/dL (Negative) Urine Ketones (Auto) Negative mg/dL (Negative) Urine Blood (Auto) Trace (Negative) Urine Nitrite Negative (Negative) Urine Bilirubin (Auto) Negative (Negative) Urine Urobilinogen (Auto) 4 mg/dL (Normal) Urine Leukocyte Esterase (Auto) Negative (Negative) Urine RBC Occ /HPF (0-2) Urine WBC 1-4 /HPF (0-4) Urine Squamous Epithelial Cells Mod /LPF Urine Amorphous Sediment Present /HPF Urine Bacteria Moderate /HPF (0-FEW) Urine Hyaline Casts Few /HPF Urine Granular Casts Occasional /HPF Urine Mucus Mod /LPF Troponin I High Sensitivity 11 ng/L (4-75) 11 ng/L (4-75) Sodium Level 142 mmol/L (136-145) Potassium Level 3.6 mmol/L (3.5-5.1) Chloride Level 105 mmol/L (98-107) Carbon Dioxide Level 26 mmol/L (21-32) Anion Gap 11 (6-14) Blood Urea Nitrogen 35 mg/dL (8-26) Creatinine 1.5 mg/dL (0.7-1.3) Estimated GFR (Cockcroft-Gault) 45.6 Glucose Level 88 mg/dL (70-99) Calcium Level 9.1 mg/dL (8.5-10.1) Test 05/21/21 16:44 05/22/21 04:00 O2 Saturation 91 % (92-99) Arterial Blood pH 7.47 (7.35-7.45) Arterial Blood pCO2 at Patient Temp 39 mmHg (35-46) Arterial Blood pO2 at Patient Temp 59 mmHg (65-108) Arterial Blood HCO3 28 mmol/L (21-28) Arterial Blood Base Excess 4 mmol/L (-3-3) FiO2 4 lpm nasal cannula White Blood Count 4.8 x10^3/uL (4.0-11.0) Red Blood Count 3.48 x10^6/uL (4.30-5.70) Hemoglobin 11.0 g/dL (13.0-17.5) Hematocrit 34.5 % (39.0-53.0) Mean Corpuscular Volume 99 fL (79-100) Mean Corpuscular Hemoglobin 32 pg (25-35) Mean Corpuscular Hemoglobin Concent 32 g/dL (31-37) Red Cell Distribution Width 17.6 % (11.5-14.5) Platelet Count 182 x10^3/uL (140-400) Neutrophils (%) (Auto) 78 % (31-73) Lymphocytes (%) (Auto) 12 % (24-48) Monocytes (%) (Auto) 6 % (0-9) Eosinophils (%) (Auto) 4 % (0-3) Basophils (%) (Auto) 0 % (0-3) Neutrophils # (Auto) 3.7 x10^3/uL (1.8-7.7) Lymphocytes # (Auto) 0.6 x10^3/uL (1.0-4.8) Monocytes # (Auto) 0.3 x10^3/uL (0.0-1.1) Eosinophils # (Auto) 0.2 x10^3/uL (0.0-0.7) Basophils # (Auto) 0.0 x10^3/uL (0.0-0.2) Sodium Level 143 mmol/L (136-145) Potassium Level 3.8 mmol/L (3.5-5.1) Chloride Level 106 mmol/L (98-107) Carbon Dioxide Level 27 mmol/L (21-32) Anion Gap 10 (6-14) Blood Urea Nitrogen 28 mg/dL (8-26) Creatinine 1.3 mg/dL (0.7-1.3) Estimated GFR (Cockcroft-Gault) 53.8 Glucose Level 121 mg/dL (70-99) Calcium Level 8.5 mg/dL (8.5-10.1) Gamma Glutamyl Transpeptidase 292 U/L (10-85) Laboratory Tests Test 05/21/21 16:44 05/22/21 04:00 O2 Saturation 91 % (92-99) Arterial Blood pH 7.47 (7.35-7.45) Arterial Blood pCO2 at Patient Temp 39 mmHg (35-46) Arterial Blood pO2 at Patient Temp 59 mmHg (65-108) Arterial Blood HCO3 28 mmol/L (21-28) Arterial Blood Base Excess 4 mmol/L (-3-3) FiO2 4 lpm nasal cannula White Blood Count 4.8 x10^3/uL (4.0-11.0) Red Blood Count 3.48 x10^6/uL (4.30-5.70) Hemoglobin 11.0 g/dL (13.0-17.5) Hematocrit 34.5 % (39.0-53.0) Mean Corpuscular Volume 99 fL (79-100) Mean Corpuscular Hemoglobin 32 pg (25-35) Mean Corpuscular Hemoglobin Concent 32 g/dL (31-37) Red Cell Distribution Width 17.6 % (11.5-14.5) Platelet Count 182 x10^3/uL (140-400) Neutrophils (%) (Auto) 78 % (31-73) Lymphocytes (%) (Auto) 12 % (24-48) Monocytes (%) (Auto) 6 % (0-9) Eosinophils (%) (Auto) 4 % (0-3) Basophils (%) (Auto) 0 % (0-3) Neutrophils # (Auto) 3.7 x10^3/uL (1.8-7.7) Lymphocytes # (Auto) 0.6 x10^3/uL (1.0-4.8) Monocytes # (Auto) 0.3 x10^3/uL (0.0-1.1) Eosinophils # (Auto) 0.2 x10^3/uL (0.0-0.7) Basophils # (Auto) 0.0 x10^3/uL (0.0-0.2) Sodium Level 143 mmol/L (136-145) Potassium Level 3.8 mmol/L (3.5-5.1) Chloride Level 106 mmol/L (98-107) Carbon Dioxide Level 27 mmol/L (21-32) Anion Gap 10 (6-14) Blood Urea Nitrogen 28 mg/dL (8-26) Creatinine 1.3 mg/dL (0.7-1.3) Estimated GFR (Cockcroft-Gault) 53.8 Glucose Level 121 mg/dL (70-99) Calcium Level 8.5 mg/dL (8.5-10.1) Gamma Glutamyl Transpeptidase 292 U/L (10-85) Medications Active Scripts Medications Dose Route/Sig Max Daily Dose Days Date Category Dose Instructions Mysoline (Primidone) 250 Mg Tablet 250 Mg PO BID 05/21/21 Reported Dilantin (Phenytoin Sodium Extended) 100 Mg Capsule 1 Cap PO BID 05/21/21 Reported Spiriva (Tiotropium Colora) 18 Mcg Cap.w.dev 2 Inh IH DAILY 05/21/21 Reported Aspirin 81 Mg Tab.chew 1 Tab PO DAILY 05/21/21 Reported Bumetanide 1 Mg Tablet 1 Tab PO DAILY 05/21/21 Reported Zoloft (Sertraline Hcl) 100 Mg Tablet 100 Mg PO DAILY 05/21/21 Reported Sinemet 25-100 Mg Tablet (Carbidopa/Levodopa) 1 Each Tablet 1 Tab PO TID 05/21/21 Reported Ondansetron Odt (Ondansetron) 4 Mg Tab.rapdis 4 Mg PO PRN Q8HRS PRN 05/21/21 Reported Xarelto (Rivaroxaban) 20 Mg Tablet 1 Tab PO DAILY 30 05/21/21 Reported with food Feosol (Ferrous Sulfate) 325 Mg Tablet 325 Mg PO QODAY 05/21/21 Reported Tramadol Hcl 50 Mg Tablet 50 Mg PO PRN Q6HRS PRN 05/21/21 Reported Duoneb 0.5-3(2.5) Mg/3 Ml (Albuterol/Ipratropium) 3 Ml Ampul.neb 3 Ml NEB PRN Q4HRS PRN 05/21/21 Reported Impression . IMPRESSION: 1. Acute hypoxemic respiratory failure, multifactorial. 2. Possible aspiration pneumonia. 3. Pneumonia, healthcare-acquired, gram-negative, gram-positive organisms. 4. Acute renal failure. 5. Coronary artery disease with previous coronary artery bypass grafting. 6. Acute encephalopathy, suspect toxic, possibly metabolic. 7. Atrial fibrillation. Plan . Updated 05/22 ABG noted Discussed with speech Continue current support Empiric antibiotics PLAN: 1. Continue current empiric antibiotics. 2. Arterial blood gas. 3. Alcohol withdrawal protocol per Dr. Paul. 4. Anticoagulation. I do appreciate the privilege in sharing in the patient's care. VIDAL BERGMAN MD May 22, 2021 08:21
[2021-05-22] MEDS: PHENYTOIN SODIUM EXTENDED 100 MG CAPSULE PO SCH ×2 (08:32→21:56)
[2021-05-22] MEDS: LACTOBACILLUS RHAMNOSUS GG 1 CAPSULE. PO SCH ×2 (08:32→21:56)
[2021-05-22] MEDS: CARBIDOPA/LEVODOPA 25/100MG TABLET PO SCH ×3 (08:32→21:56)
[2021-05-22] MEDS: ASPIRIN CHEWABLE 81 MG TABLET. PO SCH (08:32)
[2021-05-22] MEDS: PRIMIDONE 250 MG TABLET PO SCH ×2 (08:32→21:56)
[2021-05-22] MEDS: RIVAROXABAN 10 MG TABLET. PO SCH (08:32)
[2021-05-22] MEDS: SERTRALINE 50 MG TABLET. PO SCH (08:32)
[2021-05-22] MEDS: BUMETANIDE 1 MG TABLET. PO SCH (08:32)
[2021-05-22] MEDS: methylPREDNISolone SOD SUCC PF 40 MG/ML VIAL. IV SCH ×2 (08:36→21:56)
[2021-05-22] MEDS ORDERED: NON FORMULARY ITEM (Tiotropium Bromide (Spiriva) 2 INH) IH SCH (09:00)
[2021-05-22 11:00] VITALS: BP 139/82
[2021-05-22] MEDS: VANCOMYCIN PER PHARMACY MC PRN (13:40)
[2021-05-22] MEDS: POTASSIUM CL 20MEQ D5-0.45NACL 1,000 ML IV SCH ×2 (14:32→21:40)
[2021-05-22 15:00] VITALS: BP 156/75
--- NOTE | 2021-05-22 16:32 | PDOC ---
[employer] PROGRESS NOTE Date of Service DOS: DATE: 05/22/21 TIME: 16:29 Chief Complaint Chief Complaint sepsis acute pneumonia, aspiration pneumonia, Speech has seen diet has been changed, anemia, acute renal failure , acute vasomotor nephropathy, better, mild transaminitis, atrial fibrillation, CAD, HR about 100 at times, afib RVR better parkinsons disease, he has been living in [facility] for a few months, but says that is not where he lives History of Present Illness History of Present Illness cont tje IV azithromycin and rocephin. prob aspiration, much better today O2 per nasal cannula. Ruled out influenza, ruled out COVID-19 Vitals/I&O Vitals/I&O: Vital Signs Date Time Temp Pulse Resp B/P (MAP) Pulse Ox O2 Delivery O2 Flow Rate FiO2 05/22/21 15:22 96 Nasal Cannula 4.0 05/22/21 15:00 97.8 93 18 156/75 (102) 97.8 I & O 05/21/21 05/21/21 05/22/21 15:00 23:00 07:00 Intake Total 580 ml 310 ml 781 ml Balance 580 ml 310 ml 781 ml Physical Exam Physical Exam: looks way better todya, alert, talkative, oriented General: Alert, Oriented X3, Cooperative, No acute distress Heart: Regular rate, Normal S1, No murmurs Lungs: Wheezing, Crackles Abdomen: Normal bowel sounds, Soft Extremities: No clubbing Skin: No rashes Labs Labs: Laboratory Tests Test 05/21/21 16:44 05/22/21 04:00 O2 Saturation 91 % (92-99) Arterial Blood pH 7.47 (7.35-7.45) Arterial Blood pCO2 at Patient Temp 39 mmHg (35-46) Arterial Blood pO2 at Patient Temp 59 mmHg (65-108) Arterial Blood HCO3 28 mmol/L (21-28) Arterial Blood Base Excess 4 mmol/L (-3-3) FiO2 4 lpm nasal cannula White Blood Count 4.8 x10^3/uL (4.0-11.0) Red Blood Count 3.48 x10^6/uL (4.30-5.70) Hemoglobin 11.0 g/dL (13.0-17.5) Hematocrit 34.5 % (39.0-53.0) Mean Corpuscular Volume 99 fL (79-100) Mean Corpuscular Hemoglobin 32 pg (25-35) Mean Corpuscular Hemoglobin Concent 32 g/dL (31-37) Red Cell Distribution Width 17.6 % (11.5-14.5) Platelet Count 182 x10^3/uL (140-400) Neutrophils (%) (Auto) 78 % (31-73) Lymphocytes (%) (Auto) 12 % (24-48) Monocytes (%) (Auto) 6 % (0-9) Eosinophils (%) (Auto) 4 % (0-3) Basophils (%) (Auto) 0 % (0-3) Neutrophils # (Auto) 3.7 x10^3/uL (1.8-7.7) Lymphocytes # (Auto) 0.6 x10^3/uL (1.0-4.8) Monocytes # (Auto) 0.3 x10^3/uL (0.0-1.1) Eosinophils # (Auto) 0.2 x10^3/uL (0.0-0.7) Basophils # (Auto) 0.0 x10^3/uL (0.0-0.2) Sodium Level 143 mmol/L (136-145) Potassium Level 3.8 mmol/L (3.5-5.1) Chloride Level 106 mmol/L (98-107) Carbon Dioxide Level 27 mmol/L (21-32) Anion Gap 10 (6-14) Blood Urea Nitrogen 28 mg/dL (8-26) Creatinine 1.3 mg/dL (0.7-1.3) Estimated GFR (Cockcroft-Gault) 53.8 Glucose Level 121 mg/dL (70-99) Calcium Level 8.5 mg/dL (8.5-10.1) Gamma Glutamyl Transpeptidase 292 U/L (10-85) Assessment and Plan Assessmemt and Plan Problems Medical Problems: (1) Acute hypoxemic respiratory failure Status: Acute (2) Acute renal insufficiency Status: Acute (3) Bacterial pneumonia Status: Acute (4) COPD with acute exacerbation Status: Acute Comment Review of Relevant I have reviewed the following items dequan (where applicable) has been applied. Medications: Current Medications Medications (Trade) Dose Ordered Sig/Fabienne Route PRN Reason Start Time Stop Time Status Last Admin Dose Admin Piperacillin Sod/ Tazobactam Sod 3.375 gm/Sodium Chloride 50 ml @ 100 mls/hr Q6HRS IV 05/21/21 17:00 05/22/21 13:42 DC 05/22/21 12:06 Vancomycin HCl 2 gm/Sodium Chloride 500 ml @ 250 mls/hr 1X ONCE IV 05/21/21 17:00 05/21/21 18:59 DC 05/21/21 18:54 Lactobacillus Rhamnosus (Culturelle) 1 cap BID PO 05/21/21 21:00 05/22/21 08:32 Potassium Chloride/Dextrose/ Sod Cl 1,000 ml @ 75 mls/hr [id number] IV 05/21/21 19:00 05/22/21 14:32 Justifications for Admission Other Justification PHILOMENA DOUGLAS MD May 22, 2021 16:32
--- NOTE | 2021-05-22 16:41 | NUR ---
SS following up with discharge planning. SS reviewed pt chart and discussed with pt RN. Pt is resident from [facility], ; fax [phone]. Pt is currently requiring oxygen at two liters nasal canula. COVID19 negative. Pulmonology following. Pt on IV Zosyn, IV Vancomycin, and IV Solu-Medrol. SS will continue to follow for discharge planning.
[2021-05-22] MEDS: PIPERACILLIN/TAZOBACTAM 4.5 GM in IV DEXTROSE 5% 100ML 100 ML IV SCH ×2 (17:41→23:41)
[2021-05-22 19:00] VITALS: BP 141/77
[2021-05-22] MEDS ORDERED: VANCOMYCIN 1.25 GM in IV NORMAL SALINE 250ML 250 ML IV SCH (20:00)
[2021-05-22 22:21] VITALS: BP 144/65
[2021-05-23 02:42] VITALS: BP 137/80
[2021-05-23] MEDS: PIPERACILLIN/TAZOBACTAM 4.5 GM in IV DEXTROSE 5% 100ML 100 ML IV SCH ×3 (05:59→18:27)
[2021-05-23 07:00] VITALS: BP 142/94
[2021-05-23] MEDS: IPRATRPIUM/ALBUTEROL 0.5/2.5MG 3 ML NEBU. NEB SCH ×4 (08:03→21:43)
[2021-05-23] MEDS ORDERED: ONDANSETRON PF 4 MG/2 ML VIAL. IVP PRN (08:30)
[2021-05-23 08:36] LABS: GASTRIC OB PAT POSITIVE (NEG)
--- NOTE | 2021-05-23 08:54 | PDOC ---
PULMONARY PROGRESS NOTES DATE: 05/23/21 TIME: 08:53 Subjective Patient had emesis this morning, slightly more short of breath Vitals Vital Signs Date Time Temp Pulse Resp B/P (MAP) Pulse Ox O2 Delivery O2 Flow Rate FiO2 05/23/21 08:10 94 Nasal Cannula 4.0 05/23/21 02:42 98.5 80 18 137/80 (99) 98.5 ROS: No Nausea, No Chest Pain, No Abdominal Pain, No Increase Cough General: Alert Lungs: Wheezing, Crackles Cardiovascular: S1, S2 Abdomen: Soft Neuro Exam: Alert Extremities: No Edema Skin: Warm Labs Laboratory Tests Test 05/21/21 16:44 05/22/21 04:00 05/23/21 08:13 O2 Saturation 91 % (92-99) Arterial Blood pH 7.47 (7.35-7.45) Arterial Blood pCO2 at Patient Temp 39 mmHg (35-46) Arterial Blood pO2 at Patient Temp 59 mmHg (65-108) Arterial Blood HCO3 28 mmol/L (21-28) Arterial Blood Base Excess 4 mmol/L (-3-3) FiO2 4 lpm nasal cannula White Blood Count 4.8 x10^3/uL (4.0-11.0) Red Blood Count 3.48 x10^6/uL (4.30-5.70) Hemoglobin 11.0 g/dL (13.0-17.5) Hematocrit 34.5 % (39.0-53.0) Mean Corpuscular Volume 99 fL (79-100) Mean Corpuscular Hemoglobin 32 pg (25-35) Mean Corpuscular Hemoglobin Concent 32 g/dL (31-37) Red Cell Distribution Width 17.6 % (11.5-14.5) Platelet Count 182 x10^3/uL (140-400) Neutrophils (%) (Auto) 78 % (31-73) Lymphocytes (%) (Auto) 12 % (24-48) Monocytes (%) (Auto) 6 % (0-9) Eosinophils (%) (Auto) 4 % (0-3) Basophils (%) (Auto) 0 % (0-3) Neutrophils # (Auto) 3.7 x10^3/uL (1.8-7.7) Lymphocytes # (Auto) 0.6 x10^3/uL (1.0-4.8) Monocytes # (Auto) 0.3 x10^3/uL (0.0-1.1) Eosinophils # (Auto) 0.2 x10^3/uL (0.0-0.7) Basophils # (Auto) 0.0 x10^3/uL (0.0-0.2) Sodium Level 143 mmol/L (136-145) Potassium Level 3.8 mmol/L (3.5-5.1) Chloride Level 106 mmol/L (98-107) Carbon Dioxide Level 27 mmol/L (21-32) Anion Gap 10 (6-14) Blood Urea Nitrogen 28 mg/dL (8-26) Creatinine 1.3 mg/dL (0.7-1.3) Estimated GFR (Cockcroft-Gault) 53.8 Glucose Level 121 mg/dL (70-99) Calcium Level 8.5 mg/dL (8.5-10.1) Gamma Glutamyl Transpeptidase 292 U/L (10-85) Gastric Fluid Occult Blood Positive (NEG) Laboratory Tests Test 05/23/21 08:13 Gastric Fluid Occult Blood Positive (NEG) Medications Active Scripts Medications Dose Route/Sig Max Daily Dose Days Date Category Dose Instructions Mysoline (Primidone) 250 Mg Tablet 250 Mg PO BID 05/21/21 Reported Dilantin (Phenytoin Sodium Extended) 100 Mg Capsule 1 Cap PO BID 05/21/21 Reported Spiriva (Tiotropium [place]) 18 Mcg Cap.w.dev 2 Inh IH DAILY 05/21/21 Reported Aspirin 81 Mg Tab.chew 1 Tab PO DAILY 05/21/21 Reported Bumetanide 1 Mg Tablet 1 Tab PO DAILY 05/21/21 Reported Zoloft (Sertraline Hcl) 100 Mg Tablet 100 Mg PO DAILY 05/21/21 Reported Sinemet 25-100 Mg Tablet (Carbidopa/Levodopa) 1 Each Tablet 1 Tab PO TID 05/21/21 Reported Ondansetron Odt (Ondansetron) 4 Mg Tab.rapdis 4 Mg PO PRN Q8HRS PRN 05/21/21 Reported Xarelto (Rivaroxaban) 20 Mg Tablet 1 Tab PO DAILY 30 05/21/21 Reported with food Feosol (Ferrous Sulfate) 325 Mg Tablet 325 Mg PO QODAY 05/21/21 Reported Tramadol Hcl 50 Mg Tablet 50 Mg PO PRN Q6HRS PRN 05/21/21 Reported Duoneb 0.5-3(2.5) Mg/3 Ml (Albuterol/Ipratropium) 3 Ml Ampul.neb 3 Ml NEB PRN Q4HRS PRN 05/21/21 Reported Impression . IMPRESSION: 1. Acute hypoxemic respiratory failure, multifactorial. 2. Possible aspiration pneumonia. 3. Pneumonia, healthcare-acquired, gram-negative, gram-positive organisms. 4. Acute renal failure. 5. Coronary artery disease with previous coronary artery bypass grafting. 6. Acute encephalopathy, suspect toxic, possibly metabolic. 7. Atrial fibrillation. Plan . Updated 05/23 Discussed with nurse to check Hemoccult and emesis Monitor for aspiration ABG noted Discussed with speech Continue current support Empiric antibiotics VIDAL BERGMAN MD May 23, 2021 08:54
[2021-05-23] MEDS: PRIMIDONE 250 MG TABLET PO SCH ×2 (09:00→21:11)
[2021-05-23] MEDS ORDERED: SALIVA STIMULANT AGENT 44ML SPRAY BOTTLE. PO PRN ×2 (09:00→13:30)
[2021-05-23] MEDS: BUMETANIDE 1 MG TABLET. PO SCH (09:00)
[2021-05-23] MEDS ORDERED: PANTOPRAZOLE IV PUSH 40 MG VIAL. IVP ONE (09:00)
[2021-05-23] MEDS: SERTRALINE 50 MG TABLET. PO SCH (09:00)
[2021-05-23] MEDS: LACTOBACILLUS RHAMNOSUS GG 1 CAPSULE. PO SCH ×2 (09:00→21:11)
[2021-05-23] MEDS: ASPIRIN CHEWABLE 81 MG TABLET. PO SCH (09:00)
[2021-05-23] MEDS: CARBIDOPA/LEVODOPA 25/100MG TABLET PO SCH ×3 (09:00→21:11)
[2021-05-23] MEDS: FERROUS SULFATE 325 MG TABLET. PO SCH (09:00)
[2021-05-23] MEDS: POTASSIUM CL 20MEQ D5-0.45NACL 1,000 ML IV SCH ×2 (09:39→22:53)
[2021-05-23 10:05] LABS: HEMATOCRIT 36.7 % (39.0-53.0); HEMOGLOBIN 11.9 g/dL (13.0-17.5); RED BLOOD COUNT 3.78 x10^6/uL (4.30-5.70); RED CELL DISTRIBUTION WIDTH 17.5 % (11.5-14.5); WHITE BLOOD COUNT 6.3 x10^3/uL (4.0-11.0)
[2021-05-23 10:19] LABS: CALCIUM 8.8 mg/dL (8.5-10.1); CREATININE 1.2 mg/dL (0.7-1.3); POTASSIUM 3.5 mmol/L (3.5-5.1)
[2021-05-23 10:51] VITALS: BP 138/70
[2021-05-23] MEDS: methylPREDNISolone SOD SUCC PF 40 MG/ML VIAL. IV SCH ×2 (12:47→21:12)
--- NOTE | 2021-05-23 13:18 | PDOC ---
[employer] PROGRESS NOTE Date of Service DOS: DATE: 05/23/21 TIME: 13:17 Chief Complaint Chief Complaint acute nausea and vomting, was describes as coffee ground, no anemia sepsis acute pneumonia, aspiration pneumonia, Speech has seen diet has been changed, anemia, acute renal failure , acute vasomotor nephropathy, better, mild transaminitis, atrial fibrillation, CAD, HR about 100 at times, afib RVR better parkinsons disease, he has been living in [facility] senior living for a few months, but says that is not where he lives History of Present Illness History of Present Illness cont IV azithromycin and rocephin. prob aspiration, much better today O2 per nasal cannula. Ruled out influenza, ruled out COVID-19 Vitals/I&O Vitals/I&O: Vital Signs Date Time Temp Pulse Resp B/P (MAP) Pulse Ox O2 Delivery O2 Flow Rate FiO2 05/23/21 10:51 97.9 94 18 138/70 (92) 91 Nasal Cannula 4.0 97.9 I & O 05/22/21 05/22/21 05/23/21 15:00 23:00 07:00 Intake Total 0 ml 700 ml 1300 ml Balance 0 ml 700 ml 1300 ml Physical Exam Physical Exam: confused this AM, now alert and talkatiev at noon, General: Alert, Oriented X3, Cooperative, No acute distress Heart: Regular rate, Normal S1, No murmurs Lungs: Wheezing, Crackles Abdomen: Normal bowel sounds, Soft Extremities: No clubbing Skin: No rashes Labs Labs: Laboratory Tests Test 05/23/21 08:13 05/23/21 09:25 Gastric Fluid Occult Blood Positive (NEG) White Blood Count 6.3 x10^3/uL (4.0-11.0) Red Blood Count 3.78 x10^6/uL (4.30-5.70) Hemoglobin 11.9 g/dL (13.0-17.5) Hematocrit 36.7 % (39.0-53.0) Mean Corpuscular Volume 97 fL (79-100) Mean Corpuscular Hemoglobin 31 pg (25-35) Mean Corpuscular Hemoglobin Concent 32 g/dL (31-37) Red Cell Distribution Width 17.5 % (11.5-14.5) Platelet Count 241 x10^3/uL (140-400) Sodium Level 140 mmol/L (136-145) Potassium Level 3.5 mmol/L (3.5-5.1) Chloride Level 104 mmol/L (98-107) Carbon Dioxide Level 29 mmol/L (21-32) Anion Gap 7 (6-14) Blood Urea Nitrogen 24 mg/dL (8-26) Creatinine 1.2 mg/dL (0.7-1.3) Estimated GFR (Cockcroft-Gault) 59.0 Glucose Level 131 mg/dL (70-99) Calcium Level 8.8 mg/dL (8.5-10.1) Assessment and Plan Assessmemt and Plan Problems Medical Problems: (1) Acute hypoxemic respiratory failure Status: Acute (2) Acute renal insufficiency Status: Acute (3) Bacterial pneumonia Status: Acute (4) COPD with acute exacerbation Status: Acute Comment Review of Relevant I have reviewed the following items dequan (where applicable) has been applied. Medications: Current Medications Medications (Trade) Dose Ordered Sig/Fabienne Route PRN Reason Start Time Stop Time Status Last Admin Dose Admin Vancomycin HCl 1.25 gm/Sodium Chloride 250 ml @ 167 mls/hr Q24H IV 05/22/21 20:00 05/22/21 21:55 Piperacillin Sod/ Tazobactam Sod 4.5 gm/Dextrose 100 ml @ 200 mls/hr Q6HRS IV 05/22/21 18:00 05/23/21 12:47 Pantoprazole Sodium (PROTONIX VIAL for IV PUSH) 40 mg 1X ONCE IVP 05/23/21 09:00 05/23/21 09:01 DC 05/23/21 09:09 Justifications for Admission Other Justification PHILOMENA DOUGLAS MD May 23, 2021 13:18
--- NOTE | 2021-05-23 14:11 | PDOC2 ---
CONSULT Date of Consult Date of Consult DATE: 05/23/21 TIME: 14:03 Reason for Consult Reason for Consult: Acute emesis History of Present Illness Reason for Visit: This is a 75-year-old gentleman who was admitted several days ago with presumed aspiration pneumonia. He has a history of multiple medical problems including parkinsonism, dementia, coronary artery disease with previous bypass surgery. His x-ray intranasally was fairly negative but clinically he had what sounds like aspiration pneumonia symptoms. He had been on a mechanically soft diet and seemed to be tolerating it well until this morning when he developed acute onset of multiple emesis events. There was some coffee-ground's and some of the emesis and an NG tube was placed empirically. This resulted in some initial removal of gastric fluids which had some dark material but then eventually stabilized. However before I could see him he did already pulled this tube out and was ready to eat. He states he denies abdominal pain and is not sure why he had vomiting this morning. His best I can tell from the record he was eating yesterday. Patient is unable to tell me about any chronic GI problems such as peptic ulcer disease or liver disease. His initial labs revealed a slight elevation of transaminases and alkaline phosphatase and GGTP. There may be some presumption of prior liver disease from alcohol use. We do not have any of those records at this time. Past Medical History Cardiovascular: CAD CENTRAL NERVOUS SYSTEM: Other (Parkinsonism) Past Surgical History Past Surgical History: CABG Current Problem List Problem List Problems Medical Problems: (1) Acute hypoxemic respiratory failure Status: Acute (2) Acute renal insufficiency Status: Acute (3) Bacterial pneumonia Status: Acute (4) COPD with acute exacerbation Status: Acute Current Medications Current Medications Current Medications Azithromycin 500 mg/Sodium Chloride 250 ml @ 250 mls/hr 1X ONCE IV Last administered on 05/21/21at 00:48; Start 05/21/21 at 01:00; Stop 05/21/21 at 04:57; Status DC Ceftriaxone Sodium (Rocephin) 1 gm Q24H IVP Last administered on 05/21/21at 00:48; Start 05/21/21 at 01:00; Stop 05/21/21 at 16:16; Status DC Methylprednisolone Sodium Succinate (SOLU-Medrol 125MG VIAL) 125 mg 1X ONCE IV Last administered on 05/21/21at 00:47; Start 05/21/21 at 00:30; Stop 05/21/21 at 00:31; Status DC Albuterol/ Ipratropium (Duoneb) 3 ml 1X ONCE NEB Last administered on 05/21/21at 00:49; Start 05/21/21 at 00:30; Stop 05/21/21 at 00:31; Status DC Sodium Chloride 1,000 ml @ 1,000 mls/hr 1X ONCE IV Last administered on 05/21/21at 00:47; Start 05/21/21 at 00:30; Stop 05/21/21 at 04:57; Status DC Ondansetron HCl (Zofran) 4 mg PRN Q8HRS PRN IVP NAUSEA/VOMITING 1ST CHOICE; Start 05/21/21 at 00:15; Stop 05/22/21 at 00:14; Status DC Acetaminophen (Tylenol) 650 mg PRN Q4HRS PRN PO FEVER > 100.3'F; Start 05/21/21 at 00:15; Stop 05/22/21 at 00:14; Status DC Albuterol/ Ipratropium (Duoneb) 3 ml RTQID NEB Last administered on 05/21/21at 11:45; Start 05/21/21 at 08:00; Stop 05/21/21 at 11:46; Status DC Aspirin (Aspirin Chewable) 81 mg DAILY PO Last administered on 05/22/21at 08:32; Start 05/21/21 at 12:00 Bumetanide (Bumex) 1 mg DAILY PO Last administered on 05/22/21at 08:32; Start 05/21/21 at 12:00 Carbidopa/Levodopa (Sinemet 25/100) 1 tab TID PO ; Start 05/21/21 at 12:30; Stop 05/21/21 at 12:10; Status DC Ferrous Sulfate (Feosol) 325 mg QODAY PO Last administered on 05/21/21at 12:29; Start 05/21/21 at 12:30 Albuterol/ Ipratropium (Duoneb) 3 ml PRN Q4HRS PRN NEB SEE COMMENTS; Start 05/21/21 at 11:45; Status UNV Ondansetron HCl (Zofran Odt) 4 mg PRN Q8HRS PRN PO NAUSEA/VOMITING; Start 05/21/21 at 11:45 Phenytoin Sodium (Dilantin) 100 mg BID PO Last administered on 05/22/21 21:56; Start 05/21/21 at 12:30; Stop 05/23/21 at 12:34; Status DC Primidone (Mysoline) 250 mg BID PO Last administered on 05/22/21 21:56; Start 05/21/21 at 12:30 Tramadol HCl (Ultram) 50 mg PRN Q6HRS PRN PO PAIN; Start 05/21/21 at 11:45 Rivaroxaban (Xarelto) 20 mg DAILY PO Last administered on 05/22/21 08:32; Start 05/21/21 at 12:30; Stop 05/23/21 at 09:52; Status DC Sertraline HCl (Zoloft) 100 mg DAILY PO Last administered on 05/22/21 08:32; Start 05/21/21 at 12:30 Non-Formulary Medication (Tiotropium [place] (Spiriva)) 2 inh DAILY IH ; Start 05/22/21 at 09:00; Status UNV Albuterol/ Ipratropium (Duoneb) 3 ml RTQID NEB Last administered on 05/21/21at 15:29; Start 05/21/21 at 12:00; Stop 05/21/21 at 16:19; Status DC Albuterol Sulfate (Ventolin Neb Soln) 2.5 mg PRN Q6HRS PRN NEB SHORTNESS OF BREATH; Start 05/21/21 at 12:00 Carbidopa/Levodopa (Sinemet 25/100) 1 tab TID PO Last administered on 05/22/21 21:56; Start 05/21/21 at 12:30 Albuterol/ Ipratropium (Duoneb) 3 ml RTQID NEB Last administered on 05/23/21at 08:03; Start 05/21/21 at 16:00 Methylprednisolone Sodium Succinate (SOLU-Medrol 40MG VIAL) 40 mg Q12HR IV Last administered on 05/23/21at 12:47; Start 05/21/21 at 15:00 Thiamine HCl 100 mg/Dextrose 51 ml @ 102 mls/hr 1X ONCE IV Last administered on 05/21/21at 16:35; Start 05/21/21 at 15:45; Stop 05/21/21 at 16:14; Status DC Multivitamins 10 ml/Thiamine HCl 100 mg/Folic Acid 1 mg/Sodium Chloride 1,011.2 ml @ 100 mls/ hr 1X ONCE IV ; Start 05/21/21 at 16:00; Stop 05/21/21 at 16:04; Status DC Lorazepam (Ativan Inj) 2 mg PRN Q1HR PRN IV For CIWA 8-14; Start 05/21/21 at 15:45; Stop 05/21/21 at 16:04; Status DC Lorazepam (Ativan Inj) 4 mg PRN Q1HR PRN IV For CIWA 15 or greater; Start 05/21/21 at 15:45; Stop 05/21/21 at 16:04; Status DC Haloperidol Lactate (Haldol Inj) 5 mg PRN Q4HRS PRN IVP Hallucinatns,Confusn,Delirium; Start 05/21/21 at 15:45 Vancomycin HCl (Vanco Per Pharmacy) 1 each PRN DAILY PRN MC SEE COMMENTS Last administered on 05/22/21at 13:40; Start 05/21/21 at 16:15 Piperacillin Sod/ Tazobactam Sod (Zosyn Per Pharmacy) 1 each PRN DAILY PRN MC SEE COMMENTS; Start 05/21/21 at 16:15 Diltiazem HCl (Cardizem Iv Push) 10 mg 1X ONCE IVP Last administered on 05/21/21at 16:50; Start 05/21/21 at 16:15; Stop 05/21/21 at 16:16; Status DC Digoxin (Lanoxin) 250 mcg 1X ONCE IV Last administered on 05/21/21at 19:56; Start 05/21/21 at 16:15; Stop 05/21/21 at 16:16; Status DC Piperacillin Sod/ Tazobactam Sod 3.375 gm/Sodium Chloride 50 ml @ 100 mls/hr Q6HRS IV Last administered on 05/22/21at 12:06; Start 05/21/21 at 17:00; Stop 05/22/21 at 13:42; Status DC Vancomycin HCl 2 gm/Sodium Chloride 500 ml @ 250 mls/hr 1X ONCE IV Last administered on 05/21/21at 18:54; Start 05/21/21 at 17:00; Stop 05/21/21 at 18:59; Status DC Lactobacillus Rhamnosus (Culturelle) 1 cap BID PO Last administered on 05/22/21at 21:56; Start 05/21/21 at 21:00 Potassium Chloride/Dextrose/ Sod Cl 1,000 ml @ 100 mls/hr Q10H IV Last administered on 05/23/21at 09:39; Start 05/21/21 at 19:00 Vancomycin HCl 1.25 gm/Sodium Chloride 250 ml @ 167 mls/hr Q24H IV Last administered on 05/22/21at 21:55; Start 05/22/21 at 20:00 Vancomycin HCl (Vancomycin Trough Level) 1 each 1X ONCE MC ; Start 05/23/21 at 19:30; Stop 05/23/21 at 19:31 Piperacillin Sod/ Tazobactam Sod 4.5 gm/Dextrose 100 ml @ 200 mls/hr Q6HRS IV Last administered on 05/23/21at 12:47; Start 05/22/21 at 18:00 Ondansetron HCl (Zofran) 8 mg PRN Q8HRS PRN IVP NAUSEA/VOMITING; Start 05/23/21 at 08:30 Pantoprazole Sodium (PROTONIX VIAL for IV PUSH) 40 mg 1X ONCE IVP Last administered on 05/23/21at 09:09; Start 05/23/21 at 09:00; Stop 05/23/21 at 09:01; Status DC Saliva Substitute (Biotene Moisturizing Mouth) 2 spray PRN Q15MIN PRN PO DRY MOUTH; Start 05/23/21 at 09:00 Fosphenytoin Sodium (Cerebyx) 100 mg BID IV ; Start 05/23/21 at 13:00 Saliva Substitute (Biotene Moisturizing Mouth) 2 spray PRN Q15MIN PRN PO DRY MOUTH; Start 05/23/21 at 13:30; Status UNV Active Scripts Active Reported Mysoline (Primidone) 250 Mg Tablet 250 Mg PO BID Dilantin (Phenytoin Sodium Extended) 100 Mg Capsule 1 Cap PO BID Spiriva (Tiotropium [place]) 18 Mcg Cap.w.dev 2 Inh IH DAILY Aspirin 81 Mg Tab.chew 1 Tab PO DAILY Bumetanide 1 Mg Tablet 1 Tab PO DAILY Zoloft (Sertraline Hcl) 100 Mg Tablet 100 Mg PO DAILY Sinemet 25-100 Mg Tablet (Carbidopa/Levodopa) 1 Each Tablet 1 Tab PO TID Ondansetron Odt (Ondansetron) 4 Mg Tab.rapdis 4 Mg PO PRN Q8HRS PRN Xarelto (Rivaroxaban) 20 Mg Tablet 1 Tab PO DAILY 30 Days with food Feosol (Ferrous Sulfate) 325 Mg Tablet 325 Mg PO QODAY Tramadol Hcl 50 Mg Tablet 50 Mg PO PRN Q6HRS PRN Duoneb 0.5-3(2.5) Mg/3 Ml (Albuterol/Ipratropium) 3 Ml Ampul.neb 3 Ml NEB PRN Q4HRS PRN Allergies Allergies: Coded Allergies: atorvastatin (Verified Allergy, Severe, 05/21/21) Physical Exam General: Other (Awake but confused. He wants to eat. He has pulled out his NG tube.) HEENT: Atraumatic, PERRLA Lungs: Other (A few rhonchi) Heart: Regular rate, Normal S1, Normal S2, Other (Large scar with defect in the sternum consistent with prior CABG) Abdomen: Soft, No tenderness, Other (But bowel sounds are diminished) Vitals VITALS Vital Signs Date Time Temp Pulse Resp B/P (MAP) Pulse Ox O2 Delivery O2 Flow Rate FiO2 05/23/21 10:51 97.9 94 18 138/70 (92) 91 Nasal Cannula 4.0 97.9 Labs Labs Laboratory Tests Test 05/21/21 16:44 05/22/21 04:00 05/23/21 08:13 05/23/21 09:25 O2 Saturation 91 % (92-99) Arterial Blood pH 7.47 (7.35-7.45) Arterial Blood pCO2 at Patient Temp 39 mmHg (35-46) Arterial Blood pO2 at Patient Temp 59 mmHg (65-108) Arterial Blood HCO3 28 mmol/L (21-28) Arterial Blood Base Excess 4 mmol/L (-3-3) FiO2 4 lpm nasal cannula White Blood Count 4.8 x10^3/uL (4.0-11.0) 6.3 x10^3/uL (4.0-11.0) Red Blood Count 3.48 x10^6/uL (4.30-5.70) 3.78 x10^6/uL (4.30-5.70) Hemoglobin 11.0 g/dL (13.0-17.5) 11.9 g/dL (13.0-17.5) Hematocrit 34.5 % (39.0-53.0) 36.7 % (39.0-53.0) Mean Corpuscular Volume 99 fL (79-100) 97 fL (79-100) Mean Corpuscular Hemoglobin 32 pg (25-35) 31 pg (25-35) Mean Corpuscular Hemoglobin Concent 32 g/dL (31-37) 32 g/dL (31-37) Red Cell Distribution Width 17.6 % (11.5-14.5) 17.5 % (11.5-14.5) Platelet Count 182 x10^3/uL (140-400) 241 x10^3/uL (140-400) Neutrophils (%) (Auto) 78 % (31-73) Lymphocytes (%) (Auto) 12 % (24-48) Monocytes (%) (Auto) 6 % (0-9) Eosinophils (%) (Auto) 4 % (0-3) Basophils (%) (Auto) 0 % (0-3) Neutrophils # (Auto) 3.7 x10^3/uL (1.8-7.7) Lymphocytes # (Auto) 0.6 x10^3/uL (1.0-4.8) Monocytes # (Auto) 0.3 x10^3/uL (0.0-1.1) Eosinophils # (Auto) 0.2 x10^3/uL (0.0-0.7) Basophils # (Auto) 0.0 x10^3/uL (0.0-0.2) Sodium Level 143 mmol/L (136-145) 140 mmol/L (136-145) Potassium Level 3.8 mmol/L (3.5-5.1) 3.5 mmol/L (3.5-5.1) Chloride Level 106 mmol/L (98-107) 104 mmol/L (98-107) Carbon Dioxide Level 27 mmol/L (21-32) 29 mmol/L (21-32) Anion Gap 10 (6-14) 7 (6-14) Blood Urea Nitrogen 28 mg/dL (8-26) 24 mg/dL (8-26) Creatinine 1.3 mg/dL (0.7-1.3) 1.2 mg/dL (0.7-1.3) Estimated GFR (Cockcroft-Gault) 53.8 59.0 Glucose Level 121 mg/dL (70-99) 131 mg/dL (70-99) Calcium Level 8.5 mg/dL (8.5-10.1) 8.8 mg/dL (8.5-10.1) Gamma Glutamyl Transpeptidase 292 U/L (10-85) Gastric Fluid Occult Blood Positive (NEG) Laboratory Tests Test 05/23/21 08:13 05/23/21 09:25 Gastric Fluid Occult Blood Positive (NEG) White Blood Count 6.3 x10^3/uL (4.0-11.0) Red Blood Count 3.78 x10^6/uL (4.30-5.70) Hemoglobin 11.9 g/dL (13.0-17.5) Hematocrit 36.7 % (39.0-53.0) Mean Corpuscular Volume 97 fL (79-100) Mean Corpuscular Hemoglobin 31 pg (25-35) Mean Corpuscular Hemoglobin Concent 32 g/dL (31-37) Red Cell Distribution Width 17.5 % (11.5-14.5) Platelet Count 241 x10^3/uL (140-400) Sodium Level 140 mmol/L (136-145) Potassium Level 3.5 mmol/L (3.5-5.1) Chloride Level 104 mmol/L (98-107) Carbon Dioxide Level 29 mmol/L (21-32) Anion Gap 7 (6-14) Blood Urea Nitrogen 24 mg/dL (8-26) Creatinine 1.2 mg/dL (0.7-1.3) Estimated GFR (Cockcroft-Gault) 59.0 Glucose Level 131 mg/dL (70-99) Calcium Level 8.8 mg/dL (8.5-10.1) Assessment/Plan Assessment/Plan Acute emesis. Some suspicion of coffee-ground's but hemoglobin stable. Source for this emesis is unclear but clinically he has an ileus which may be related to his underlying illness. There is no history of previous vomiting although he is a poor historian. Cannot exclude gastritis or peptic disease as well. Abnormal liver test. Slight elevation in transaminases. Elevated alkaline phosphatase and GGTP, with normal alkaline phosphatase recently. There are some notes in the chart that he may have a history of alcohol use in the past. We do not have any of those records. These findings need to be repeated and consider additional work-up. They do not however likely explain his emesis. Ultrasound would be appropriate Plan: Abdominal x-ray Ultrasound of the liver and gallbladder Repeat liver tests. Can try some sips of water or clear liquids as tolerated later today. MILA CISNEROS MD May 23, 2021 14:11
[2021-05-23] MEDS: FOSPHENYTOIN 100 MG/2 ML VIAL. IV SCH ×2 (14:36→21:11)
[2021-05-23 14:55] LABS: HEMATOCRIT 35.3 % (39.0-53.0); HEMOGLOBIN 11.5 g/dL (13.0-17.5); RED BLOOD COUNT 3.63 x10^6/uL (4.30-5.70); RED CELL DISTRIBUTION WIDTH 17.2 % (11.5-14.5)
[2021-05-23 15:00] VITALS: BP 124/62
--- NOTE | 2021-05-23 15:14 | RAD ---
Supine abdomen. HISTORY: Vomiting Supine view was taken of the abdomen. There is a distended sigmoid colon. There is moderate gas in th e right colon. There is moderate stool in the left colon. There is no small bowel obstruction. Follow -up study would be of benefit to exclude a volvulus IMPRESSION: 1. Distended sigmoid loop, follow-up recommended to exclude worsening from a volvulus. 2. Moderate stool in the left colon. 3. No small bowel obstruction. Electronically signed by: Keenan Drake MD (05/23/2021 3:12 PM) [id number]
[2021-05-23 19:09] VITALS: BP 154/70
[2021-05-23 19:34] LABS: VANC TR 10.4 mcg/mL (10.0-20.0)
[2021-05-23] MEDS: VANCOMYCIN PER PHARMACY MC PRN (19:58)
--- NOTE | 2021-05-23 20:03 | NUR ---
Pharmacy Vancomycin Dosing Note S: Consulted to monitor and dose vancomycin started 05/21/21. O: BOUCHRA PUENTE is a 75 year old M with Pneumonia Other Antibiotics: zosyn LABS: Last BUN: 24 Last Creatinine: 1.2 Creatinine Clearance: 58 mL/min Last WBC: 7.0 Last Procalcitonin: 0.65 Tmax (past 24 hours): 98.9 Drug Levels: Last Trough level: 10.4 on 05/23/21 at 1930 Last dose given 05/22/21 at 2155 Target Trough: 10-20 A: Based on: LOW END OF THERAPEUTIC TROUGH AND SLOW IMPROVING RENAL FUNCTION P: 1. Change Vancomycin to 1500 mg IV q24h 2. Follow up Trough level on 05/25/21 at 1930 3. Pharmacy will continue to monitor, follow and adjust therapy as needed. ALFONSO DAS [facility], 05/23/212002
[2021-05-23] MEDS: VANCOMYCIN 1.5 GM in IV NORMAL SALINE 500ML BAG 500 ML IV SCH (21:12)
[2021-05-23 22:42] VITALS: BP 122/56
[2021-05-24] MEDS: PIPERACILLIN/TAZOBACTAM 4.5 GM in IV DEXTROSE 5% 100ML 100 ML IV SCH ×4 (00:13→17:24)
[2021-05-24 02:50] VITALS: BP 105/60
[2021-05-24 03:56] LABS: BASO % 1 % (0-3); EOS # 0.2 x10^3/uL (0.0-0.7); EOS % 3 % (0-3); HEMATOCRIT 33.7 % (39.0-53.0); HEMOGLOBIN 10.7 g/dL (13.0-17.5); LYMPH # 0.6 x10^3/uL (1.0-4.8); LYMPH % 10 % (24-48); MEAN CORPUSCULAR HEMOGLOBIN 32 pg (25-35); MEAN CORPUSCULAR HGB CONC 32 g/dL (31-37); MEAN CORPUSCULAR VOLUME 99 fL (79-100); MONO # 0.3 x10^3/uL (0.0-1.1); MONO % 4 % (0-9); NEUT # 5.2 x10^3/uL (1.8-7.7); NEUT % 82 % (31-73); PLATELET COUNT 244 x10^3/uL (140-400); RED BLOOD COUNT 3.39 x10^6/uL (4.30-5.70); RED CELL DISTRIBUTION WIDTH 17.7 % (11.5-14.5); WHITE BLOOD COUNT 6.4 x10^3/uL (4.0-11.0)
[2021-05-24 04:12] LABS: PHENY 1.4 mcg/mL (10.0-20.0)
[2021-05-24 04:13] LABS: ALBUMIN 2.2 g/dL (3.4-5.0); ALBUMIN/GLOBULIN RATIO 0.6 (1.0-1.7); CALCIUM 8.2 mg/dL (8.5-10.1); CREATININE 1.3 mg/dL (0.7-1.3); GFR 53.8; POTASSIUM 3.9 mmol/L (3.5-5.1); TOTAL BILIRUBIN 0.6 mg/dL (0.2-1.0)
[2021-05-24 07:00] VITALS: BP 116/55
[2021-05-24] MEDS: POTASSIUM CL 20MEQ D5-0.45NACL 1,000 ML IV SCH ×2 (07:31→17:31)
[2021-05-24] MEDS: IPRATRPIUM/ALBUTEROL 0.5/2.5MG 3 ML NEBU. NEB SCH ×4 (07:41→21:14)
[2021-05-24] MEDS: LACTOBACILLUS RHAMNOSUS GG 1 CAPSULE. PO SCH ×2 (08:15→21:08)
[2021-05-24] MEDS: PRIMIDONE 250 MG TABLET PO SCH ×2 (08:15→21:08)
[2021-05-24] MEDS: SERTRALINE 50 MG TABLET. PO SCH (08:15)
[2021-05-24] MEDS: CARBIDOPA/LEVODOPA 25/100MG TABLET PO SCH ×3 (08:15→21:08)
[2021-05-24] MEDS: BUMETANIDE 1 MG TABLET. PO SCH (08:16)
[2021-05-24] MEDS: methylPREDNISolone SOD SUCC PF 40 MG/ML VIAL. IV SCH ×2 (08:16→21:08)
[2021-05-24] MEDS: FOSPHENYTOIN 100 MG/2 ML VIAL. IV SCH ×2 (08:17→21:23)
[2021-05-24] MEDS: ASPIRIN CHEWABLE 81 MG TABLET. PO SCH (09:00)
[2021-05-24 10:34] LABS: DIRECT BILIRUBIN 0.3 mg/dL (0.0-0.2)
[2021-05-24 11:00] VITALS: BP 152/76
[2021-05-24] MEDS ORDERED: CYANOCOBALAMIN (VITAMIN B-12) 1,000 MCG/ML VIAL. IM ONE (11:00)
--- NOTE | 2021-05-24 11:46 | PDOC ---
PULMONARY PROGRESS NOTES DATE: 05/24/21 TIME: 11:45 Subjective Patient feels better today, no further emesis Currently on clear liquids No increasing shortness of breath or cough. Vitals Vital Signs Date Time Temp Pulse Resp B/P (MAP) Pulse Ox O2 Delivery O2 Flow Rate FiO2 05/24/21 08:16 18 95 Nasal Cannula 4.0 05/24/21 07:00 99.8 66 116/55 (75) 99.8 ROS: No Nausea, No Chest Pain, No Abdominal Pain, No Increase Cough General: Alert Lungs: Wheezing, Crackles Cardiovascular: S1, S2 Abdomen: Soft Neuro Exam: Alert Extremities: No Edema Skin: Warm Labs Laboratory Tests Test 05/23/21 08:13 05/23/21 09:25 05/23/21 14:40 05/23/21 19:15 Gastric Fluid Occult Blood Positive (NEG) White Blood Count 6.3 x10^3/uL (4.0-11.0) 7.0 x10^3/uL (4.0-11.0) Red Blood Count 3.78 x10^6/uL (4.30-5.70) 3.63 x10^6/uL (4.30-5.70) Hemoglobin 11.9 g/dL (13.0-17.5) 11.5 g/dL (13.0-17.5) Hematocrit 36.7 % (39.0-53.0) 35.3 % (39.0-53.0) Mean Corpuscular Volume 97 fL (79-100) 97 fL (79-100) Mean Corpuscular Hemoglobin 31 pg (25-35) 32 pg (25-35) Mean Corpuscular Hemoglobin Concent 32 g/dL (31-37) 33 g/dL (31-37) Red Cell Distribution Width 17.5 % (11.5-14.5) 17.2 % (11.5-14.5) Platelet Count 241 x10^3/uL (140-400) 249 x10^3/uL (140-400) Sodium Level 140 mmol/L (136-145) Potassium Level 3.5 mmol/L (3.5-5.1) Chloride Level 104 mmol/L (98-107) Carbon Dioxide Level 29 mmol/L (21-32) Anion Gap 7 (6-14) Blood Urea Nitrogen 24 mg/dL (8-26) Creatinine 1.2 mg/dL (0.7-1.3) Estimated GFR (Cockcroft-Gault) 59.0 Glucose Level 131 mg/dL (70-99) Calcium Level 8.8 mg/dL (8.5-10.1) Vancomycin Level Trough 10.4 mcg/mL (10.0-20.0) Vancomycin Last Dose Date 05/22/21 Vancomycin Last Dose Time 2000 Test 05/24/21 03:30 White Blood Count 6.4 x10^3/uL (4.0-11.0) Red Blood Count 3.39 x10^6/uL (4.30-5.70) Hemoglobin 10.7 g/dL (13.0-17.5) Hematocrit 33.7 % (39.0-53.0) Mean Corpuscular Volume 99 fL (79-100) Mean Corpuscular Hemoglobin 32 pg (25-35) Mean Corpuscular Hemoglobin Concent 32 g/dL (31-37) Red Cell Distribution Width 17.7 % (11.5-14.5) Platelet Count 244 x10^3/uL (140-400) Neutrophils (%) (Auto) 82 % (31-73) Lymphocytes (%) (Auto) 10 % (24-48) Monocytes (%) (Auto) 4 % (0-9) Eosinophils (%) (Auto) 3 % (0-3) Basophils (%) (Auto) 1 % (0-3) Neutrophils # (Auto) 5.2 x10^3/uL (1.8-7.7) Lymphocytes # (Auto) 0.6 x10^3/uL (1.0-4.8) Monocytes # (Auto) 0.3 x10^3/uL (0.0-1.1) Eosinophils # (Auto) 0.2 x10^3/uL (0.0-0.7) Basophils # (Auto) 0.0 x10^3/uL (0.0-0.2) Sodium Level 144 mmol/L (136-145) Potassium Level 3.9 mmol/L (3.5-5.1) Chloride Level 107 mmol/L (98-107) Carbon Dioxide Level 29 mmol/L (21-32) Anion Gap 8 (6-14) Blood Urea Nitrogen 22 mg/dL (8-26) Creatinine 1.3 mg/dL (0.7-1.3) Estimated GFR (Cockcroft-Gault) 53.8 BUN/Creatinine Ratio 17 (6-20) Glucose Level 129 mg/dL (70-99) Calcium Level 8.2 mg/dL (8.5-10.1) Total Bilirubin 0.6 mg/dL (0.2-1.0) Direct Bilirubin 0.3 mg/dL (0.0-0.2) Aspartate Amino Transf (AST/SGOT) 37 U/L (15-37) Alanine Aminotransferase (ALT/SGPT) 9 U/L (16-63) Alkaline Phosphatase 103 U/L (46-116) Total Protein 6.0 g/dL (6.4-8.2) Albumin 2.2 g/dL (3.4-5.0) Albumin/Globulin Ratio 0.6 (1.0-1.7) Lipase 276 U/L (73-393) Phenytoin (Dilantin) Level 1.4 mcg/mL (10.0-20.0) Phenytoin Last Dose Date [id number] Phenytoin Last Dose Time 2100 Laboratory Tests Test 05/23/21 14:40 05/23/21 19:15 05/24/21 03:30 White Blood Count 7.0 x10^3/uL (4.0-11.0) 6.4 x10^3/uL (4.0-11.0) Red Blood Count 3.63 x10^6/uL (4.30-5.70) 3.39 x10^6/uL (4.30-5.70) Hemoglobin 11.5 g/dL (13.0-17.5) 10.7 g/dL (13.0-17.5) Hematocrit 35.3 % (39.0-53.0) 33.7 % (39.0-53.0) Mean Corpuscular Volume 97 fL (79-100) 99 fL (79-100) Mean Corpuscular Hemoglobin 32 pg (25-35) 32 pg (25-35) Mean Corpuscular Hemoglobin Concent 33 g/dL (31-37) 32 g/dL (31-37) Red Cell Distribution Width 17.2 % (11.5-14.5) 17.7 % (11.5-14.5) Platelet Count 249 x10^3/uL (140-400) 244 x10^3/uL (140-400) Vancomycin Level Trough 10.4 mcg/mL (10.0-20.0) Vancomycin Last Dose Date 05/22/21 Vancomycin Last Dose Time 1999 Neutrophils (%) (Auto) 82 % (31-73) Lymphocytes (%) (Auto) 10 % (24-48) Monocytes (%) (Auto) 4 % (0-9) Eosinophils (%) (Auto) 3 % (0-3) Basophils (%) (Auto) 1 % (0-3) Neutrophils # (Auto) 5.2 x10^3/uL (1.8-7.7) Lymphocytes # (Auto) 0.6 x10^3/uL (1.0-4.8) Monocytes # (Auto) 0.3 x10^3/uL (0.0-1.1) Eosinophils # (Auto) 0.2 x10^3/uL (0.0-0.7) Basophils # (Auto) 0.0 x10^3/uL (0.0-0.2) Sodium Level 144 mmol/L (136-145) Potassium Level 3.9 mmol/L (3.5-5.1) Chloride Level 107 mmol/L (98-107) Carbon Dioxide Level 29 mmol/L (21-32) Anion Gap 8 (6-14) Blood Urea Nitrogen 22 mg/dL (8-26) Creatinine 1.3 mg/dL (0.7-1.3) Estimated GFR (Cockcroft-Gault) 53.8 BUN/Creatinine Ratio 17 (6-20) Glucose Level 129 mg/dL (70-99) Calcium Level 8.2 mg/dL (8.5-10.1) Total Bilirubin 0.6 mg/dL (0.2-1.0) Direct Bilirubin 0.3 mg/dL (0.0-0.2) Aspartate Amino Transf (AST/SGOT) 37 U/L (15-37) Alanine Aminotransferase (ALT/SGPT) 9 U/L (16-63) Alkaline Phosphatase 103 U/L (46-116) Total Protein 6.0 g/dL (6.4-8.2) Albumin 2.2 g/dL (3.4-5.0) Albumin/Globulin Ratio 0.6 (1.0-1.7) Lipase 276 U/L (73-393) Phenytoin (Dilantin) Level 1.4 mcg/mL (10.0-20.0) Phenytoin Last Dose Date Phenytoin Last Dose Time 2099 Medications Active Scripts Medications Dose Route/Sig Max Daily Dose Days Date Category Dose Instructions Mysoline (Primidone) 250 Mg Tablet 250 Mg PO BID 05/21/21 Reported Dilantin (Phenytoin Sodium Extended) 100 Mg Capsule 1 Cap PO BID 05/21/21 Reported Spiriva (Tiotropium [place]) 18 Mcg Cap.w.dev 2 Inh IH DAILY 05/21/21 Reported Aspirin 81 Mg Tab.chew 1 Tab PO DAILY 05/21/21 Reported Bumetanide 1 Mg Tablet 1 Tab PO DAILY 05/21/21 Reported Zoloft (Sertraline Hcl) 100 Mg Tablet 100 Mg PO DAILY 05/21/21 Reported Sinemet 25-100 Mg Tablet (Carbidopa/Levodopa) 1 Each Tablet 1 Tab PO TID 05/21/21 Reported Ondansetron Odt (Ondansetron) 4 Mg Tab.rapdis 4 Mg PO PRN Q8HRS PRN 05/21/21 Reported Xarelto (Rivaroxaban) 20 Mg Tablet 1 Tab PO DAILY 30 05/21/21 Reported with food Feosol (Ferrous Sulfate) 325 Mg Tablet 325 Mg PO QODAY 05/21/21 Reported Tramadol Hcl 50 Mg Tablet 50 Mg PO PRN Q6HRS PRN 05/21/21 Reported Duoneb 0.5-3(2.5) Mg/3 Ml (Albuterol/Ipratropium) 3 Ml Ampul.neb 3 Ml NEB PRN Q4HRS PRN 05/21/21 Reported Impression . IMPRESSION: 1. Acute hypoxemic respiratory failure, multifactorial. 2. Possible aspiration pneumonia. 3. Pneumonia, healthcare-acquired, gram-negative, gram-positive organisms. 4. Acute renal failure. 5. Coronary artery disease with previous coronary artery bypass grafting. 6. Acute encephalopathy, suspect toxic, possibly metabolic. 7. Atrial fibrillation. 8. Possible acute GI blood loss Plan . Updated 05/24 Patient seen in consultation by GI Hemoglobin hematocrit stable Advance diet per GI Respiratory status compensated Discussed with speech last week Updated 05/23 Discussed with nurse to check Hemoccult and emesis Monitor for aspiration ABG noted Discussed with speech Continue current support Empiric antibiotics VIDAL BERGMAN MD May 24, 2021 11:46
--- NOTE | 2021-05-24 13:32 | PDOC ---
GI PROGRESS NOTES Date of Service: Date/Time DATE: 05/24/21 TIME: 13:30 Subjective Subjective Improved. Had bowel movements overnight and has tolerated diet without nausea or vomiting. Objective Vitals Vital Signs Date Time Temp Pulse Resp B/P (MAP) Pulse Ox O2 Delivery O2 Flow Rate FiO2 05/24/21 11:00 97.7 82 17 152/76 (101) 92 Nasal Cannula 3.0 97.7 05/24/21 08:45 95 Nasal Cannula 4.0 05/24/21 08:16 18 95 Nasal Cannula 4.0 05/24/21 08:00 Nasal Cannula 4.0 05/24/21 07:44 95 Nasal Cannula 4.0 05/24/21 07:00 99.8 66 19 116/55 (75) 95 Nasal Cannula 3.0 99.8 05/24/21 02:50 98.4 59 18 105/60 (75) 96 Nasal Cannula 3.0 98.4 05/23/21 22:42 98.6 77 16 122/56 (78) 91 Nasal Cannula 4.0 98.6 05/23/21 21:43 94 Nasal Cannula 4.0 05/23/21 20:27 Nasal Cannula 4.0 05/23/21 19:09 98.8 91 16 154/70 (98) 93 Nasal Cannula 4.0 98.8 05/23/21 15:00 99.7 83 18 124/62 (82) 94 Nasal Cannula 4.0 99.7 Labs Labs Laboratory Tests Test 05/23/21 14:40 05/23/21 19:15 05/24/21 03:30 White Blood Count 7.0 x10^3/uL (4.0-11.0) 6.4 x10^3/uL (4.0-11.0) Red Blood Count 3.63 x10^6/uL (4.30-5.70) 3.39 x10^6/uL (4.30-5.70) Hemoglobin 11.5 g/dL (13.0-17.5) 10.7 g/dL (13.0-17.5) Hematocrit 35.3 % (39.0-53.0) 33.7 % (39.0-53.0) Mean Corpuscular Volume 97 fL (79-100) 99 fL (79-100) Mean Corpuscular Hemoglobin 32 pg (25-35) 32 pg (25-35) Mean Corpuscular Hemoglobin Concent 33 g/dL (31-37) 32 g/dL (31-37) Red Cell Distribution Width 17.2 % (11.5-14.5) 17.7 % (11.5-14.5) Platelet Count 249 x10^3/uL (140-400) 244 x10^3/uL (140-400) Vancomycin Level Trough 10.4 mcg/mL (10.0-20.0) Vancomycin Last Dose Date 05/22/21 Vancomycin Last Dose Time 1999 Neutrophils (%) (Auto) 82 % (31-73) Lymphocytes (%) (Auto) 10 % (24-48) Monocytes (%) (Auto) 4 % (0-9) Eosinophils (%) (Auto) 3 % (0-3) Basophils (%) (Auto) 1 % (0-3) Neutrophils # (Auto) 5.2 x10^3/uL (1.8-7.7) Lymphocytes # (Auto) 0.6 x10^3/uL (1.0-4.8) Monocytes # (Auto) 0.3 x10^3/uL (0.0-1.1) Eosinophils # (Auto) 0.2 x10^3/uL (0.0-0.7) Basophils # (Auto) 0.0 x10^3/uL (0.0-0.2) Sodium Level 144 mmol/L (136-145) Potassium Level 3.9 mmol/L (3.5-5.1) Chloride Level 107 mmol/L (98-107) Carbon Dioxide Level 29 mmol/L (21-32) Anion Gap 8 (6-14) Blood Urea Nitrogen 22 mg/dL (8-26) Creatinine 1.3 mg/dL (0.7-1.3) Estimated GFR (Cockcroft-Gault) 53.8 BUN/Creatinine Ratio 17 (6-20) Glucose Level 129 mg/dL (70-99) Calcium Level 8.2 mg/dL (8.5-10.1) Total Bilirubin 0.6 mg/dL (0.2-1.0) Direct Bilirubin 0.3 mg/dL (0.0-0.2) Aspartate Amino Transf (AST/SGOT) 37 U/L (15-37) Alanine Aminotransferase (ALT/SGPT) 9 U/L (16-63) Alkaline Phosphatase 103 U/L (46-116) Total Protein 6.0 g/dL (6.4-8.2) Albumin 2.2 g/dL (3.4-5.0) Albumin/Globulin Ratio 0.6 (1.0-1.7) Lipase 276 U/L (73-393) Phenytoin (Dilantin) Level 1.4 mcg/mL (10.0-20.0) Phenytoin Last Dose Date [id number] Phenytoin Last Dose Time 2100 Physical Exam Physical Exam Awake and alert wanting to know when he is going back to [facility] Chest clear Heart regular rate and rhythm Abdomen soft, better bowel sounds today. No point tenderness. Assessment Assessment Acute emesis likely from ileus. X-ray does raise the possibility of a small sigmoid volvulus but clinically he does not have a volvulus. He has no tenderness and is having bowel movements. I think it is more likely a reflection of an ileus which is resolved. If his symptoms recur however then further imaging repeat x-rays would be appropriate. Plan continue to resume previous diet and monitor Justicifation of Admission Dx: Justifications for Admission: Justification of Admission Dx: Yes MILA CISNEROS MD May 24, 2021 13:32
[2021-05-24 15:00] VITALS: BP 185/81
--- NOTE | 2021-05-24 15:44 | RAD ---
EXAM: ULTRASOUND ABDOMEN LIMITED CLINICAL HISTORY: Reason: abnormal liver function tests, vomiting- r/o gallstones or liver lesions COMPARISON: None available. TECHNIQUE: Limited ultrasound examination of the right upper quadrant of the abdomen was performed. FINDINGS: Pancreas was obscured by bowel gas. Liver is poorly evaluated. Liver is mildly echogenic, focal lesio n was not identified. There is flow the portal vein with color imaging. Gallbladder was normal withou t gallstones or gallbladder wall thickening. Common duct was normal measuring 4.5 mm. Right kidney wa s 12 cm in length without hydronephrosis. IMPRESSION: 1. Limited study. 2. No gallstones noted. 3. Pancreas obscured. 4. Liver incompletely evaluated. Electronically signed by: Keenan Drake MD (05/24/2021 3:42 PM) [id number]
[2021-05-24] MEDS: FOLIC/VIT B COMP W-C (RENAL) TABLET. PO SCH (17:24)
[2021-05-24 19:45] VITALS: BP 161/81
[2021-05-24] MEDS: VANCOMYCIN 1.5 GM in IV NORMAL SALINE 500ML BAG 500 ML IV SCH (21:24)
[2021-05-24 22:55] VITALS: BP 164/79
[2021-05-25] MEDS: PIPERACILLIN/TAZOBACTAM 4.5 GM in IV DEXTROSE 5% 100ML 100 ML IV SCH ×3 (00:15→12:12)
[2021-05-25 02:50] VITALS: BP 159/78
[2021-05-25] MEDS: POTASSIUM CL 20MEQ D5-0.45NACL 1,000 ML IV SCH ×2 (03:31→13:31)
[2021-05-25 06:30] VITALS: BP 130/68
[2021-05-25] MEDS: IPRATRPIUM/ALBUTEROL 0.5/2.5MG 3 ML NEBU. NEB SCH ×3 (07:49→15:37)
[2021-05-25] MEDS: BUMETANIDE 1 MG TABLET. PO SCH (08:11)
[2021-05-25] MEDS: SERTRALINE 50 MG TABLET. PO SCH (08:12)
[2021-05-25] MEDS: CARBIDOPA/LEVODOPA 25/100MG TABLET PO SCH ×2 (08:13→14:30)
[2021-05-25] MEDS: ASPIRIN CHEWABLE 81 MG TABLET. PO SCH (08:13)
[2021-05-25] MEDS: FOLIC/VIT B COMP W-C (RENAL) TABLET. PO SCH (08:13)
[2021-05-25] MEDS: FERROUS SULFATE 325 MG TABLET. PO SCH (08:13)
[2021-05-25] MEDS: PRIMIDONE 250 MG TABLET PO SCH (08:13)
[2021-05-25] MEDS: LACTOBACILLUS RHAMNOSUS GG 1 CAPSULE. PO SCH (08:13)
[2021-05-25] MEDS: methylPREDNISolone SOD SUCC PF 40 MG/ML VIAL. IV SCH (08:14)
[2021-05-25] MEDS: FOSPHENYTOIN 100 MG/2 ML VIAL. IV SCH (08:16)
[2021-05-25] MEDS: VANCOMYCIN PER PHARMACY MC PRN (10:28)
--- NOTE | 2021-05-25 10:30 | PDOC ---
Date of Service: DATE: 05/25/21 TIME: 10:24 Subjective: Subjective: No abd pain. Tolerating clears, no n/v, "starving." Nurse present - pt had "pasty" stool this morning w/ reddish color and smell con cerning for GI bleeding. Objective: Objective: PHOTOGRAPHY ASSISTANT 05/22 Although pt has dx of Parkinson's disease, motor speech and oral mech appear WNLs. Laryngeal function appeared grossly WNLs as well, with mildly hoarse phonation which pt stated is baseline. Current observations c/w delayed oral transit of puree and prolonged mastication of solids (r/t inadequate dentition). However, no subtle or overt s/s of aspiration across multiple trials of puree, solids and thin liquids. IMPRESSIONS: Functional oropharyngeal swallow. Would benefit from modified solids d/t lack of adequate dentition. No indication of aspiration per current assessment. Low risk of aspiration when seated upright, however, HOB would not elevate to 90* and pt had to be positioned using pillows. If po intake occurs at <90*, pt may be at risk of aspiration. Doubt current suspected pneumonia r/t dysphagia and aspiration but if MDs feel strongly that imaging would be of benefit to r/o aspiration, available to complete videoswallow as inpt or OP. RECOMMENDATION: Mech soft w/thin liquids. Pt agreeable to diet downgrade from regular to ground meat r/t lmtd dentition. Written precautions posted including sit up at 90* w/positioning assist PRN. Meds 1-2 at a time w/thin liquids. Vital Signs: Vital Signs Date Time Temp Pulse Resp B/P (MAP) Pulse Ox O2 Delivery O2 Flow Rate FiO2 05/25/21 08:00 Nasal Cannula 4.0 05/25/21 06:30 98.4 77 20 130/68 (88) 95 98.4 Imaging: KUB 05/23 IMPRESSION: 1. Distended sigmoid loop, follow-up recommended to exclude worsening from a volvulus. 2. Moderate stool in the left colon. 3. No small bowel obstruction. Abd US 05/23 IMPRESSION: 1. Limited study. 2. No gallstones noted. 3. Pancreas obscured. 4. Liver incompletely evaluated. PE: GEN: NAD LUNGS: diminished, NC 4L HEART: RRR ABD: large/round, quiet BS, non-tender NEURO/PSYCH: A & O 3, ?forgetful A/P: ?coffee-ground emesis - no recurrence, suspicions for ileus - resolving, remains on clear liquids Mild normocytic anemia (Hgb checked 05/24) - on ASA, iron, also s/p B12 inj Elevated LFTs - better (did note GGT 292) Resp failure, pneumonia, A Fib -- Nurse concerned for blood in stool this morning - vitals stable - recheck Hgb for completeness and if stable, resume dysphagia II diet today. Add PO acid-family resource management specialist. Justicifation of Admission Dx: Justifications for Admission: Justification of Admission Dx: Yes JULY CABALLERO May 25, 2021 10:30
--- NOTE | 2021-05-25 10:32 | PDOC ---
PULMONARY PROGRESS NOTES DATE: 05/25/21 TIME: 10:32 Subjective No further emesis, eating regular diet. Vitals Vital Signs Date Time Temp Pulse Resp B/P (MAP) Pulse Ox O2 Delivery O2 Flow Rate FiO2 05/25/21 08:00 Nasal Cannula 4.0 05/25/21 06:30 98.4 77 20 130/68 (88) 95 98.4 ROS: No Nausea, No Chest Pain, No Abdominal Pain, No Increase Cough General: Alert Lungs: Wheezing, Crackles Cardiovascular: S1, S2 Abdomen: Soft Neuro Exam: Alert Extremities: No Edema Skin: Warm Labs Laboratory Tests Test 05/23/21 14:40 05/23/21 19:15 05/24/21 03:30 White Blood Count 7.0 x10^3/uL (4.0-11.0) 6.4 x10^3/uL (4.0-11.0) Red Blood Count 3.63 x10^6/uL (4.30-5.70) 3.39 x10^6/uL (4.30-5.70) Hemoglobin 11.5 g/dL (13.0-17.5) 10.7 g/dL (13.0-17.5) Hematocrit 35.3 % (39.0-53.0) 33.7 % (39.0-53.0) Mean Corpuscular Volume 97 fL (79-100) 99 fL (79-100) Mean Corpuscular Hemoglobin 32 pg (25-35) 32 pg (25-35) Mean Corpuscular Hemoglobin Concent 33 g/dL (31-37) 32 g/dL (31-37) Red Cell Distribution Width 17.2 % (11.5-14.5) 17.7 % (11.5-14.5) Platelet Count 249 x10^3/uL (140-400) 244 x10^3/uL (140-400) Vancomycin Level Trough 10.4 mcg/mL (10.0-20.0) Vancomycin Last Dose Date 05/22/21 Vancomycin Last Dose Time 1999 Neutrophils (%) (Auto) 82 % (31-73) Lymphocytes (%) (Auto) 10 % (24-48) Monocytes (%) (Auto) 4 % (0-9) Eosinophils (%) (Auto) 3 % (0-3) Basophils (%) (Auto) 1 % (0-3) Neutrophils # (Auto) 5.2 x10^3/uL (1.8-7.7) Lymphocytes # (Auto) 0.6 x10^3/uL (1.0-4.8) Monocytes # (Auto) 0.3 x10^3/uL (0.0-1.1) Eosinophils # (Auto) 0.2 x10^3/uL (0.0-0.7) Basophils # (Auto) 0.0 x10^3/uL (0.0-0.2) Sodium Level 144 mmol/L (136-145) Potassium Level 3.9 mmol/L (3.5-5.1) Chloride Level 107 mmol/L (98-107) Carbon Dioxide Level 29 mmol/L (21-32) Anion Gap 8 (6-14) Blood Urea Nitrogen 22 mg/dL (8-26) Creatinine 1.3 mg/dL (0.7-1.3) Estimated GFR (Cockcroft-Gault) 53.8 BUN/Creatinine Ratio 17 (6-20) Glucose Level 129 mg/dL (70-99) Calcium Level 8.2 mg/dL (8.5-10.1) Total Bilirubin 0.6 mg/dL (0.2-1.0) Direct Bilirubin 0.3 mg/dL (0.0-0.2) Aspartate Amino Transf (AST/SGOT) 37 U/L (15-37) Alanine Aminotransferase (ALT/SGPT) 9 U/L (16-63) Alkaline Phosphatase 103 U/L (46-116) Total Protein 6.0 g/dL (6.4-8.2) Albumin 2.2 g/dL (3.4-5.0) Albumin/Globulin Ratio 0.6 (1.0-1.7) Lipase 276 U/L (73-393) Phenytoin (Dilantin) Level 1.4 mcg/mL (10.0-20.0) Phenytoin Last Dose Date [id number] Phenytoin Last Dose Time 2100 Medications Active Scripts Medications Dose Route/Sig Max Daily Dose Days Date Category Dose Instructions Mysoline (Primidone) 250 Mg Tablet 250 Mg PO BID 05/21/21 Reported Dilantin (Phenytoin Sodium Extended) 100 Mg Capsule 1 Cap PO BID 05/21/21 Reported Spiriva (Tiotropium [place]) 18 Mcg Cap.w.dev 2 Inh IH DAILY 05/21/21 Reported Aspirin 81 Mg Tab.chew 1 Tab PO DAILY 05/21/21 Reported Bumetanide 1 Mg Tablet 1 Tab PO DAILY 05/21/21 Reported Zoloft (Sertraline Hcl) 100 Mg Tablet 100 Mg PO DAILY 05/21/21 Reported Sinemet 25-100 Mg Tablet (Carbidopa/Levodopa) 1 Each Tablet 1 Tab PO TID 05/21/21 Reported Ondansetron Odt (Ondansetron) 4 Mg Tab.rapdis 4 Mg PO PRN Q8HRS PRN 05/21/21 Reported Xarelto (Rivaroxaban) 20 Mg Tablet 1 Tab PO DAILY 30 05/21/21 Reported with food Feosol (Ferrous Sulfate) 325 Mg Tablet 325 Mg PO QODAY 05/21/21 Reported Tramadol Hcl 50 Mg Tablet 50 Mg PO PRN Q6HRS PRN 05/21/21 Reported Duoneb 0.5-3(2.5) Mg/3 Ml (Albuterol/Ipratropium) 3 Ml Ampul.neb 3 Ml NEB PRN Q4HRS PRN 05/21/21 Reported Impression . IMPRESSION: 1. Acute hypoxemic respiratory failure, multifactorial. 2. Possible aspiration pneumonia. 3. Pneumonia, healthcare-acquired, gram-negative, gram-positive organisms. 4. Acute renal failure. 5. Coronary artery disease with previous coronary artery bypass grafting. 6. Acute encephalopathy, suspect toxic, possibly metabolic. 7. Atrial fibrillation. 8. Possible acute GI blood loss Plan . Updated 05/25 Discussed with GI Discussed with Dr. Hay Fitzgerald to discharge, transfer VIDAL BERGMAN MD May 25, 2021 10:32
[2021-05-25 11:00] VITALS: BP 131/81
[2021-05-25 11:28] LABS: CALCIUM 8.6 mg/dL (8.5-10.1); CREATININE 1.5 mg/dL (0.7-1.3); GFR 45.6; POTASSIUM 3.5 mmol/L (3.5-5.1)
[2021-05-25] MEDS ORDERED: PANTOPRAZOLE 40 MG TABLET.DR. PO SCH (11:30)
[2021-05-25 11:35] LABS: HEMATOCRIT 36.2 % (39.0-53.0)
--- NOTE | 2021-05-25 11:50 | PDOC ---
[employer] PROGRESS NOTE Date of Service DOS: DATE: 05/25/21 TIME: 11:43 Chief Complaint Chief Complaint acute nausea and vomting, was describes as coffee ground, no anemia sepsis acute pneumonia, aspiration pneumonia anemia, acute renal failure , acute vasomotor nephropathy, better, mild transaminitis, afib RVR improved parkinsons disease, he has been living in [facility] for a few months We will advance to dysphagia diet and if tolerates patient may be able to DC in the next 24 to 48 hours. History of Present Illness History of Present Illness cont IV azithromycin and rocephin. prob aspiration, much better today O2 per nasal cannula. Ruled out influenza, ruled out COVID-19 05/25/2021 No acute events overnight. Patient seen examined bedside. Dark stool reported by nursing today. Repeat hemoglobin at 12. AF and VSS. Patient tolerating diet without any nausea or vomiting. Patient's chart, labs, images were reviewed and discussed with RN Vitals/I&O Vitals/I&O: Vital Signs Date Time Temp Pulse Resp B/P (MAP) Pulse Ox O2 Delivery O2 Flow Rate FiO2 05/25/21 11:41 93 Nasal Cannula 4.0 05/25/21 06:30 98.4 77 20 130/68 (88) 98.4 I & O 05/24/21 05/24/21 05/25/21 15:00 23:00 07:00 Intake Total 100 ml 460 ml Balance 100 ml 460 ml Physical Exam Physical Exam: confused this AM, now alert and talkatiev at noon, General: Other (Awake but confused. He wants to eat. He has pulled out his NG tube.) Heart: Regular rate, Normal S1, Normal S2, Other (Large scar with defect in the sternum consistent with prior CABG) Lungs: Wheezing, Crackles Abdomen: Soft, No tenderness, Other (But bowel sounds are diminished) Extremities: No clubbing Skin: No rashes Labs Labs: Laboratory Tests Test 05/25/21 11:08 Hemoglobin 12.0 g/dL (13.0-17.5) Hematocrit 36.2 % (39.0-53.0) Mean Corpuscular Hemoglobin Concent 33 g/dL (31-37) Sodium Level 140 mmol/L (136-145) Potassium Level 3.5 mmol/L (3.5-5.1) Chloride Level 103 mmol/L (98-107) Carbon Dioxide Level 29 mmol/L (21-32) Anion Gap 8 (6-14) Blood Urea Nitrogen 23 mg/dL (8-26) Creatinine 1.5 mg/dL (0.7-1.3) Estimated GFR (Cockcroft-Gault) 45.6 Glucose Level 136 mg/dL (70-99) Calcium Level 8.6 mg/dL (8.5-10.1) Assessment and Plan Assessmemt and Plan Problems Medical Problems: (1) Acute hypoxemic respiratory failure Status: Acute (2) Acute renal insufficiency Status: Acute (3) Bacterial pneumonia Status: Acute (4) COPD with acute exacerbation Status: Acute Comment Review of Relevant I have reviewed the following items dequan (where applicable) has been applied. Justifications for Admission Other Justification IVETH ORTIZ MD May 25, 2021 11:50
[2021-05-25] MEDS ORDERED: DOXY100T PO (12:26)
[2021-05-25] MEDS ORDERED: AMOX1TAB61 PO (12:26)
[2021-05-25] MEDS ORDERED: PANT40TA77 PO (12:26)
--- NOTE | 2021-05-25 12:30 | SNU/HH DC ---
DISCHARGE ORDERS DISCHARGE INFORMATION: DISCHARGE DATE: May 25, 2021 FINAL DIAGNOSIS Problems Medical Problems: (1) Acute hypoxemic respiratory failure Status: Acute (2) Acute renal insufficiency Status: Acute (3) Bacterial pneumonia Status: Acute (4) COPD with acute exacerbation Status: Acute CONDITION ON DISCHARGE: Guarded CODE STATUS: Code Status: Full LONG-TERM: SNF STAY <30 DAYS: Yes POST DISCHARGE ORDERS: ACTIVITY ORDERS: Activity as tolerated WEIGHT BEARING STATUS: As tolerated DIET AFTER DISCHARGE: Cardiac FOLLOW-UP: PHYSICIAN FOLLOW-UP: [facility] per physician ADDITIONAL FOLLOW-UP: GI as scheduled or as needed LAB ORDERS FOR FOLLOW-UP: CBC and CMP upon admission ANTICOAGULATION F/U NEEDED: Hold Eliquis and aspirin due to GI bleed TREATMENT/EQUIPMENT ORDERS: Physical Therapy For: Evalulation/Treatment Occupational Therapy For: Evaluation/Treatment DISCHARGE MEDICATIONS: Home Meds Active Scripts Doxycycline Hyclate (DOXYCYCLINE HYCLATE) 100 Mg Tablet, 100 MG PO BID for pneumonia for 3 Days, #6 TAB Prov:IVETH ORTIZ MD 05/25/21 Amoxicillin/Potassium Clav (AUGMENTIN 875-125 TABLET) 1 Each Tablet, 1 TAB PO BID for pneumonia and UTI for 3 Days, #6 TAB 0 Refills Prov:IVETH ORTIZ MD 05/25/21 Pantoprazole Sodium (PANTOPRAZOLE SODIUM ) 40 Mg Tablet.dr, 40 MG PO DAILYAC for GIB for 30 Days, #30 TAB.SR 2 Refills Prov:IVETH ORTIZ MD 05/25/21 Reported Medications Primidone (MYSOLINE) 250 Mg Tablet, 250 MG PO BID for parkinsons, TAB 05/21/21 Phenytoin Sodium Extended (DILANTIN) 100 Mg Capsule, 1 CAP PO BID for parkinsons, #90 CAP 3 Refills 05/21/21 Tiotropium [place] (SPIRIVA) 18 Mcg Cap.w.dev, 2 INH IH DAILY for COPD, #1 INH 0 Refills 05/21/21 Bumetanide (BUMETANIDE) 1 Mg Tablet, 1 TAB PO DAILY for swelling, #90 TAB 1 Refill 05/21/21 Sertraline Hcl (ZOLOFT) 100 Mg Tablet, 100 MG PO DAILY for ANTI-DEPRESSANT, TAB 0 Refills 05/21/21 Carbidopa/Levodopa (SINEMET 25-100 MG TABLET) 1 Each Tablet, 1 TAB PO TID for parkinsons, TAB 05/21/21 Ondansetron (ONDANSETRON ODT) 4 Mg Tab.rapdis, 4 MG PO PRN Q8HRS PRN for NAUSEA/VOMITING, TAB 05/21/21 Ferrous Sulfate (FEOSOL) 325 Mg Tablet, 325 MG PO QODAY for anemia, TAB 05/21/21 Tramadol Hcl (TRAMADOL HCL) 50 Mg Tablet, 50 MG PO PRN Q6HRS PRN for PAIN, TAB 05/21/21 Ipratropium/Albuterol Sulfate (DUONEB 0.5-3(2.5) MG/3 ML) 3 Ml Ampul.neb, 3 ML NEB PRN Q4HRS PRN for SEE COMMENTS, EACH 05/21/21 Discontinued Reported Medications Aspirin (ASPIRIN) 81 Mg Tab.chew, 1 TAB PO DAILY for clot prevention, #30 TAB 3 Refills 05/21/21 Rivaroxaban (XARELTO) 20 Mg Tablet, 1 TAB PO DAILY for DVT for 30 Days, #30 TAB 0 Refills with food 05/21/21 IVETH ORTIZ MD May 25, 2021 12:30
--- NOTE | 2021-05-25 12:49 | NUR ---
SS following up with discharge planning. SS reviewed pt chart and discussed with pt RN. Pt is resident from [facility], ; fax [phone]. Pt is currently requiring oxygen at four liters nasal canula. COVID19 negative. PO diet. Discharge orders received and sent to [facility]. Pt will discharge today and return to [facility] at 1500 via [facility] ambulance, . Pt, pt's RN, and pt's family notified. Packet and ambulance form on the chart. SS will continue to follow for discharge planning.
[2021-05-25 15:00] VITALS: BP 137/73
--- NOTE | 2021-05-25 15:32 | NUR ---
REPORT CALLED TO JOSE AT [facility] FOR TRANSFER. AWAITING [facility] FOR TRANSPORT BY STRETCHER TO FACILITY. PIV ET TELE DISCONTINUED. REMOVED PERSONAL POSSESSIONS FROM ROOM FOR TRANFER BACK TO ORIGINATING FACILITY.
--- NOTE | 2021-05-26 17:03 | PDOC3 ---
[facility]-Discharge Summary Date of Admission: Date of Admission: May 20, 2021 Date of Discharge: Date of Discharge: May 25, 2021 Discharge Diagnosis: Discharge Diagnosis: acute nausea and vomting, was describes as coffee ground, no anemia sepsis acute pneumonia, aspiration pneumonia anemia, acute renal failure , acute vasomotor nephropathy, better, mild transaminitis, afib RVR improved parkinsons disease, he has been living in [facility] for a few months Hospital Course: Hospital Course: 75-year-old male who resides at [facility]. He presented to ER hariniight with some weakness and shortness of breath. He seems to be having some mental status change. He has some coarse breath sounds. His BUN and creatinine are high at 32 and 1.7. He also has some mild transaminitis with an AST of 72 and alkaline phosphatase of 137. BNP level is also high at 855. Chest x-ray was surprisingly not show any acute disease. We are going to admit the patient with a presumed diagnosis of possible developing pneumonia. Patient did receive antibiotics IV durings this hospital stay. He had clinical improvement, but have a coffee ground emesis. He was evaluated by GI and was found to have some ileus. He was started on a PPI and his diet was resumed once his ileus resolved. He will be evaluated as an outpatient for possible scope, lower vs upper. By day of discharge, pt was clinically stable and ready for discharge. Rest of hospital course was uneventful Disposition: Disposition/Orders: D/C to Home Activity: Activity: Resume previous activity Diet: Diet: Cardiac Medications: Home Meds Active Scripts Doxycycline Hyclate (DOXYCYCLINE HYCLATE) 100 Mg Tablet, 100 MG PO BID for pneumonia for 3 Days, #6 TAB Prov:IVETH ORTIZ MD 05/25/21 Amoxicillin/Potassium Clav (AUGMENTIN 875-125 TABLET) 1 Each Tablet, 1 TAB PO BID for pneumonia and UTI for 3 Days, #6 TAB 0 Refills Prov:IVETH ORTIZ MD 05/25/21 Pantoprazole Sodium (PANTOPRAZOLE SODIUM ) 40 Mg Tablet.dr, 40 MG PO DAILYAC for GIB for 30 Days, #30 TAB.SR 2 Refills Prov:IVETH ORTIZ MD 05/25/21 Reported Medications Primidone (MYSOLINE) 250 Mg Tablet, 250 MG PO BID for parkinsons, TAB 05/21/21 Phenytoin Sodium Extended (DILANTIN) 100 Mg Capsule, 1 CAP PO BID for parkinsons, #90 CAP 3 Refills 05/21/21 Tiotropium [place] (SPIRIVA) 18 Mcg Cap.w.dev, 2 INH IH DAILY for COPD, #1 INH 0 Refills 05/21/21 Bumetanide (BUMETANIDE) 1 Mg Tablet, 1 TAB PO DAILY for swelling, #90 TAB 1 Refill 05/21/21 Sertraline Hcl (ZOLOFT) 100 Mg Tablet, 100 MG PO DAILY for ANTI-DEPRESSANT, TAB 0 Refills 05/21/21 Carbidopa/Levodopa (SINEMET 25-100 MG TABLET) 1 Each Tablet, 1 TAB PO TID for parkinsons, TAB 05/21/21 Ondansetron (ONDANSETRON ODT) 4 Mg Tab.rapdis, 4 MG PO PRN Q8HRS PRN for NAUSEA/VOMITING, TAB 05/21/21 Ferrous Sulfate (FEOSOL) 325 Mg Tablet, 325 MG PO QODAY for anemia, TAB 05/21/21 Tramadol Hcl (TRAMADOL HCL) 50 Mg Tablet, 50 MG PO PRN Q6HRS PRN for PAIN, TAB 05/21/21 Ipratropium/Albuterol Sulfate (DUONEB 0.5-3(2.5) MG/3 ML) 3 Ml Ampul.neb, 3 ML NEB PRN Q4HRS PRN for SEE COMMENTS, EACH 05/21/21 Discontinued Reported Medications Aspirin (ASPIRIN) 81 Mg Tab.chew, 1 TAB PO DAILY for clot prevention, #30 TAB 3 Refills 05/21/21 Rivaroxaban (XARELTO) 20 Mg Tablet, 1 TAB PO DAILY for DVT for 30 Days, #30 TAB 0 Refills with food 05/21/21 Scheduled Amoxicillin/Potassium Clav (Augmentin 875-125 Tablet), 1 TAB PO BID Bumetanide (Bumetanide), 1 TAB PO DAILY, (Reported) Carbidopa/Levodopa (Sinemet 25-100 Mg Tablet), 1 TAB PO TID, (Reported) Doxycycline Hyclate (Doxycycline Hyclate), 100 MG PO BID Ferrous Sulfate (Feosol), 325 MG PO QODAY, (Reported) Pantoprazole Sodium (Pantoprazole Sodium ), 40 MG PO DAILYAC Phenytoin Sodium Extended (Dilantin), 1 CAP PO BID, (Reported) Primidone (Mysoline), 250 MG PO BID, (Reported) Sertraline Hcl (Zoloft), 100 MG PO DAILY, (Reported) Tiotropium [place] (Spiriva), 2 INH IH DAILY, (Reported) Scheduled PRN Ipratropium/Albuterol Sulfate (Duoneb 0.5-3(2.5) Mg/3 Ml), 3 ML NEB PRN Q4HRS PRN for SEE COMMENTS, (Reported) Ondansetron (Ondansetron Odt), 4 MG PO PRN Q8HRS PRN for NAUSEA/VOMITING, (Reported) Tramadol Hcl (Tramadol Hcl), 50 MG PO PRN Q6HRS PRN for PAIN, (Reported) Discontinued Medications Aspirin (Aspirin), 1 TAB PO DAILY, (Reported) Rivaroxaban (Xarelto), 1 TAB PO DAILY, (Reported) Total Time: Total Time: Total time spent was 35 minutes in preparing scripts and discharge planning with SW and RN. Patient seen and examined on day of Discharge. Justicifation of Admission Dx: Justifications for Admission: Justification of Admission Dx: Yes IVETH ORTIZ MD May 26, 2021 17:03
== END 2021-05-25 16:50 | DRG 871 ==
LOC: ER 21:12 → 6 SOUTH 05-21 00:10
PROVIDERS: ADMIT Internal Medicine; ATTEND Internal Medicine
DX: A41.9 Sepsis, unspecified organism (principal); J69.0 Pneumonitis due to inhalation of food and vomit; J96.01 Acute respiratory failure with hypoxia; N17.0 Acute kidney failure with tubular necrosis; J15.9 Unspecified bacterial pneumonia; G92.8 Other toxic encephalopathy; J44.0 Chronic obstructive pulmonary disease with (acute) lower respiratory infection; J44.1 Chronic obstructive pulmonary disease with (acute) exacerbation; I13.0 Hypertensive heart and chronic kidney disease with heart failure and stage 1 through stage 4 chronic kidney disease, or unspecified chronic kidney disease; D64.9 Anemia, unspecified; E78.5 Hyperlipidemia, unspecified; F02.80 Dementia in other diseases classified elsewhere, unspecified severity, without behavioral disturbance, psychotic disturbance, mood disturbance, and anxiety; G20 Parkinson's disease; I25.10 Atherosclerotic heart disease of native coronary artery without angina pectoris; R74.8 Abnormal levels of other serum enzymes; R74.01 Elevation of levels of liver transaminase levels; N18.9 Chronic kidney disease, unspecified; Z20.822 Contact with and (suspected) exposure to COVID-19; R79.89 Other specified abnormal findings of blood chemistry; I48.91 Unspecified atrial fibrillation; I50.9 Heart failure, unspecified; Y95 Nosocomial condition; Z83.3 Family history of diabetes mellitus; Z87.891 Personal history of nicotine dependence; Z95.1 Presence of aortocoronary bypass graft
CPT/HCPCS: 36415; 36600; 71045; 74018; 76705; 80048; 80053; 80185; 80202; 81001; 82248; 82271; 82607; 82805; 82977; 83605; 83690; 83880; 84145; 84484; 85014; 85018; 85025; 85027; 85610; 85730; 87040; 87077; 87086; 87186; 87426; 87428; 93005; 94640; 94760; 96365; 96375; C9113; J0456; J0696; J1160; J2543; J2920; J2930; J3370; J3411; J3420; J3480; J3490; J7030; J7040; J7050; J7060; Q2009; 92526-GN; 92610-GN; 99285-25; G0378

== ENCOUNTER → 2021-05-27 | Outpatient (CLI) | payer MEDICARE, OTHER ==
[2021-05-25 15:00] VITALS: BP 137/73
[~2021-05-27] MED LIST changes: +AMOX1TAB61 PO; +DOXY100T PO; +PANT40TA77 PO
[2021-05-27 08:44] LABS: BASO % 1 % (0-3); EOS # 0.1 x10^3/uL (0.0-0.7); EOS % 1 % (0-3); HEMATOCRIT 35.7 % (39.0-53.0); HEMOGLOBIN 11.4 g/dL (13.0-17.5); LYMPH # 0.8 x10^3/uL (1.0-4.8); LYMPH % 8 % (24-48); MEAN CORPUSCULAR HEMOGLOBIN 31 pg (25-35); MEAN CORPUSCULAR HGB CONC 32 g/dL (31-37); MEAN CORPUSCULAR VOLUME 98 fL (79-100); MONO # 0.3 x10^3/uL (0.0-1.1); MONO % 4 % (0-9); NEUT # 8.1 x10^3/uL (1.8-7.7); NEUT % 87 % (31-73); PLATELET COUNT 364 x10^3/uL (140-400); RED BLOOD COUNT 3.64 x10^6/uL (4.30-5.70); RED CELL DISTRIBUTION WIDTH 17.4 % (11.5-14.5); WHITE BLOOD COUNT 9.3 x10^3/uL (4.0-11.0)
[2021-05-27 09:09] LABS: ALBUMIN 2.2 g/dL (3.4-5.0); ALBUMIN/GLOBULIN RATIO 0.4 (1.0-1.7); CALCIUM 8.7 mg/dL (8.5-10.1); CREATININE 1.5 mg/dL (0.7-1.3); GFR 45.6; POTASSIUM 3.2 mmol/L (3.5-5.1); TOTAL BILIRUBIN 0.4 mg/dL (0.2-1.0); TOTAL PROTEIN 7.3 g/dL (6.4-8.2)
== END ==
LOC: SPEC
PROVIDERS: ATTEND Family Medicine
DX: J15.0 Pneumonia due to Klebsiella pneumoniae (principal)
CPT/HCPCS: 36415; 80053; 85025